=== PATIENT | female | born 1990 | race African-American/Black ===

== ENCOUNTER 2016-08-25 17:47 | Emergency (ER) | payer MEDICAID ==
[2016-08-25 18:51] VITALS: BP 115/76
[2016-08-25] MEDS ORDERED: IBUPROFEN 800 MG TABLET PO ONE (18:51)
--- NOTE | 2016-08-25 18:51 | ER Document Report ---
ED Medical Screen (RME) - General Stated Complaint: TOOTH PAIN Time seen by provider: 18:50 Mode of Arrival: Ambulatory Information source: Patient Notes: 26-year-old female presents to ED for toothache right side upper and lower on and off for the last week. She states that the oral surgeon told her they wouldn't have any openings until next month. I have greeted and performed a rapid initial assessment of this patient. A comprehensive ED assessment and evaluation of the patient, analysis of test results and completion of medical decision making process will be conducted by an additional ED providers. TRAVEL OUTSIDE OF THE [place] IN LAST 30 DAYS: No - Related Data Allergies/Adverse Reactions: hydromorphone [From Dilaudid] Allergy (Verified 06/03/16 03:43) latex Allergy (Verified 06/03/16 03:43) swelling, itching Past Medical History - Social History Chew tobacco use (# tins/day): No Frequency of alcohol use: None Drug Abuse: None - Past Medical History Cardiac Medical History: Reports: Hx Hypertension - not currently Denies: Hx Pulmonary Embolism, Hx Heart Murmur Pulmonary Medical History: Reports: Hx Asthma Denies: Hx Sleep Apnea, Hx Tuberculosis Neurological Medical History: Denies: Hx Cerebrovascular Accident Endocrine Medical History: Denies: Hx Hyperthyroidism, Hx Hypothyroidism Renal/ Medical History: Denies: Hx Kidney Stones, Hx Ovarian Cysts, Hx Peritoneal Dialysis, Hx Pelvic Inflammatory Disease Malignancy Medical History: Denies: Hx Breast Cancer, Hx Cervical Cancer, Hx Ovarian Cancer GI Medical History: Denies: Hx Gastroesophageal Reflux Disease, Hx Hiatal Hernia , Hx Ulcer Musculoskeltal Medical History: Denies Hx Fibromyalgia Psychiatric Medical History: Reports: Hx Bipolar Disorder, Hx Depression Denies: Hx Post Traumatic Stress Disorder, Hx Schizophrenia Traumatic Medical History: Denies: Hx Fractures Infectious Medical History: Denies: Hx HIV Past Surgical History: Reports: Hx Section - Patient states she's had 4C-sections, Hx Kidney (Renal Surgery) - Immunizations Immunizations up to date: Yes Hx Diphtheria, Pertussis, Tetanus Vaccination: Yes - received this
[2016-08-25] MEDS ORDERED: AMOXICILLIN TR/POT CLAVULANATE 500-125 MG TAB PO ONE (20:58)
[2016-08-25] MEDS ORDERED: HYDROCODONE/ACETAMINOPHEN 5-325 MG 6 TAB/DSPK PO PRN (20:59)
--- NOTE | 2016-08-25 21:00 | ER Document Report ---
ED General - General Chief Complaint: Toothache Stated Complaint: TOOTH PAIN Mode of Arrival: Ambulatory Information source: Patient Notes: Patient is a 26 year old female who presents with toothache to upper and lower right jaw that has been present for the past 2 months. She has seen a dentist last month who referred her to an oral surgeon but she wasn't able to get an appointment until September. She states the pain radiates up to her right ear. She has tried OTC pain medication with no relief. Denies any fever, chills, jaw swelling, cheek swelling, difficulty swallowing or breathing. TRAVEL OUTSIDE OF THE [place] IN LAST 30 DAYS: No - Related Data Allergies/Adverse Reactions: hydromorphone [From Dilaudid] Allergy (Verified 08/25/16 18:50) latex Allergy (Verified 08/25/16 18:50) swelling, itching Past Medical History - General Information source: Patient - Social History Smoking Status: Current Every Day Smoker Chew tobacco use (# tins/day): No Frequency of alcohol use: None Drug Abuse: None Family History: Reviewed & Not Pertinent Patient has suicidal ideation: No Patient has homicidal ideation: No - Past Medical History Cardiac Medical History: Reports: Hx Hypertension - not currently Denies: Hx Pulmonary Embolism, Hx Heart Murmur Pulmonary Medical History: Reports: Hx Asthma Denies: Hx Sleep Apnea, Hx Tuberculosis Neurological Medical History: Denies: Hx Cerebrovascular Accident Endocrine Medical History: Denies: Hx Hyperthyroidism, Hx Hypothyroidism Renal/ Medical History: Denies: Hx Kidney Stones, Hx Ovarian Cysts, Hx Peritoneal Dialysis, Hx Pelvic Inflammatory Disease Malignancy Medical History: Denies: Hx Breast Cancer, Hx Cervical Cancer, Hx Ovarian Cancer GI Medical History: Denies: Hx Gastroesophageal Reflux Disease, Hx Hiatal Hernia , Hx Ulcer Musculoskeltal Medical History: Denies Hx Fibromyalgia Psychiatric Medical History: Reports: Hx Bipolar Disorder, Hx Depression Denies: Hx Post Traumatic Stress Disorder, Hx Schizophrenia Traumatic Medical History: Denies: Hx Fractures Infectious Medical History: Denies: Hx HIV Past Surgical History: Reports: Hx Section - Patient states she's had 4C-sections, Hx Kidney (Renal Surgery) - Immunizations Immunizations up to date: Yes Hx Diphtheria, Pertussis, Tetanus Vaccination: Yes - received this Hx Pneumococcal Vaccination: 03/08/13 Review of Systems - Review of Systems Constitutional: See HPI EENT: See HPI Cardiovascular: No symptoms reported Respiratory: No symptoms reported Gastrointestinal: No symptoms reported Genitourinary: No symptoms reported Female Genitourinary: No symptoms reported Musculoskeletal: No symptoms reported Skin: No symptoms reported Hematologic/Lymphatic: No symptoms reported Neurological/Psychological: No symptoms reported Physical Exam - Vital signs Vitals: Temp Pulse Resp BP Pulse Ox 99.2 F 74 18 115/76 99 08/25/16 18:50 08/25/16 18:50 08/25/16 18:50 08/25/16 18:50 08/25/16 18:50 Interpretation: Normal - Notes Notes: PHYSICAL EXAM: CONSTITUTIONAL: Alert and oriented, well-appearing and in no acute distress. HENT: Normocephalic, atraumatic. Oropharynx clear without erythema, tonsilar exudate or malocclusion. Tooth #1 and #2 noted to have decay and detoriation without evidence of gingival swelling or dental abscess. Trachea midline. Uvula midline. Moist mucous membranes. HEART: Regular rate and rhythm without murmurs. LUNGS: CTAB and equal. No wheezes, rales or rhonchi. EXTREMITIES: Normal range of motion, no pitting edema. No cyanosis. Cap Refill < 3 seconds. SKIN: Warm and dry. Normal turgor. No rashes or lesions noted. Course - Re-evaluation Re-evalutation: 08/25/16 20:58 Patient seen and examined. Dental decay noted to tooth #1 and #32, no evidence of gingival swelling or dental abscess. Will give dose of antibiotics here and pain medication. Advised to follow-up with dentist and keep appointment with oral surgeon. At this time, will discharge with return precautions and follow- up recommendations. Verbal discharge instructions given at the bedside and opportunity for questions given. Medication warnings reviewed. Patient is in agreement with this plan and has verbalized understanding of return precautions and the need for primary care follow-up in the next 24-72 hours. - Vital Signs Vital signs: Temp Pulse Resp BP Pulse Ox 99.2 F 74 18 115/76 99 08/25/16 18:50 08/25/16 18:50 08/25/16 18:50 08/25/16 18:50 08/25/16 18:50 Discharge - Discharge Clinical Impression: Dental decay, Toothache Condition: Stable Disposition: HOME, SELF-CARE Additional Instructions: TOOTHACHE: Your pain is due to dental decay. The tooth must be repaired in order for you to feel better. You will, therefore, be referred to a dentist. We do not have dentists on the staff at [facility]. Severe swelling or drainage around a tooth usually means a dental abscess. This also requires evaluation and treatment by the dentist, but antibiotics may be prescribed while awaiting dental treatment. You should be rechecked immediately if you develop major swelling of the face, increasing pain, a lump in the jaw or gums, headache, difficulty swallowing, or fever. ORAL NARCOTIC MEDICATION: You have been given a prescription for pain control. This medication is a narcotic. It's best taken with food, as nausea can result if taken on an empty stomach. Don't operate machinery or drive within six hours of taking this medication. Do not combine this medicine with alcohol, or with any medication which can cause sedation (such as cold tablets or sleeping pills) unless you get permission from the physician. Narcotics tend to cause constipation. If possible, drink plenty of fluids and eat a diet high in fiber and fruits. Please be aware that prescription narcotics also have the potential for abuse. People become addicted to these medications because of the general sense of wellbeing that they induce. This feeling along with a significant reduction in tension, anxiety, and aggression provides a stimulating seductive quality to these drugs. Once your pain is under control, we encourage you to discard your unused narcotics. FOLLOW-UP CARE: You have been referred for follow-up care to the dentists listed below. Call the dentists office for an appointment as you were instructed or within the next two days. If you experience worsening or a significant change in your symptoms, notify the physician immediately or return to the Emergency Department at any time for re-evaluation. [facility] [address] [place], [place] Thursday mornings, by appointment [facility] [address] [place] [address] [facility] [address] [facility] [address] [facility] [address] [email or web address] [address] [place] [address] Thursday- 8:00am to 5:00 pm Will see patients from other [facility]. Charges based on income and family size and accepts Medicare, Medicaid, and Insurances Will pull molars [facility] [address] Hours of Operation 8:00 am - 4:30 pm weekdays The following dental offices accept Medicaid: [facility] [address] Del Valle Dr. Smith Dr. Scherer Jonny Marte, Josi, and Vinny oral surgery Dr. Saavedra ([place]) Dr. Rich ([place]) [facility] Drs. Rider ([place]) Dr. Sultana ([place]) [facility] Dr. Grimaldo ([place]) Drs. Summers and ([place]) Medicaid Care Line Prescriptions: Amox Tr/Potassium Clavulanate [Augmentin 875-125 Tablet] 1 tab PO BID 10 Days Hydrocodone/Acetaminophen [[place] 5-325 mg Tablet] 1 tab PO Q6H PRN #10 tablet PRN Reason: Ibuprofen [Motrin 600 Mg Tablet] 600 mg PO TID #15 tablet
== END 2016-08-25 21:14 | disposition home or self-care (01) ==
LOC: ER 17:47
DX: K02.9 Dental caries, unspecified (principal); K08.9 Disorder of teeth and supporting structures, unspecified; F17.200 Nicotine dependence, unspecified, uncomplicated; Z88.6 Allergy status to analgesic agent; Z91.040 Latex allergy status
CPT/HCPCS: 99282; J3490

== ENCOUNTER 2016-08-27 02:20 | Emergency (ER) | payer MEDICAID ==
[2016-08-27] MEDS ORDERED: NORMAL SALINE 1000 ML 1,000 ML IV ONE (02:26)
--- NOTE | 2016-08-27 02:30 | ER Document Report ---
ED General - General Stated Complaint: POSSIBLE OVERDOSE Notes: Patient is a 26-year-old female presents for complaints of a accidental overdose of Kiana. Patient was seen yesterday and diagnosed a tooth infection. She is placed on amoxicillin Kiana. She got the Kiana filled today. Tonight she took a tablet. She would've 4 hours if still having pain. She then took 2 tablets. She'll start Motrin amoxicillin. After taking the second dosage of Kiana she felt very sleepy and called 911. 1 para mix arrived her pupils were pinpoint and she had shallow respirations. They gave her 2 mg of intranasal Narcan which immediately awoke her in reverse her symptoms. She did vomit once. Upon arrival to the ER she started become sleepy again and therefore they gave her another 0.4 mg of Narcan IV which again woke her up. She has no other complaints at this time. She denies any other drugs. TRAVEL OUTSIDE OF THE [place] IN LAST 30 DAYS: No - Related Data Allergies/Adverse Reactions: hydromorphone [From Dilaudid] Allergy (Verified 08/25/16 18:50) latex Allergy (Verified 08/25/16 18:50) swelling, itching Past Medical History - Social History Smoking Status: Unknown if Ever Smoked Frequency of alcohol use: None Drug Abuse: None Family History: Reviewed & Not Pertinent Patient has suicidal ideation: No Patient has homicidal ideation: No - Past Medical History Cardiac Medical History: Reports: Hx Hypertension - not currently Denies: Hx Pulmonary Embolism, Hx Heart Murmur Pulmonary Medical History: Reports: Hx Asthma Denies: Hx Sleep Apnea, Hx Tuberculosis Neurological Medical History: Denies: Hx Cerebrovascular Accident Endocrine Medical History: Denies: Hx Hyperthyroidism, Hx Hypothyroidism Renal/ Medical History: Denies: Hx Kidney Stones, Hx Ovarian Cysts, Hx Peritoneal Dialysis, Hx Pelvic Inflammatory Disease Malignancy Medical History: Denies: Hx Breast Cancer, Hx Cervical Cancer, Hx Ovarian Cancer GI Medical History: Denies: Hx Gastroesophageal Reflux Disease, Hx Hiatal Hernia , Hx Ulcer Musculoskeltal Medical History: Denies Hx Fibromyalgia Psychiatric Medical History: Reports: Hx Bipolar Disorder, Hx Depression Denies: Hx Post Traumatic Stress Disorder, Hx Schizophrenia Traumatic Medical History: Denies: Hx Fractures Infectious Medical History: Denies: Hx HIV Past Surgical History: Reports: Hx Section - Patient states she's had 4C-sections, Hx Kidney (Renal Surgery) - Immunizations Immunizations up to date: Yes Hx Diphtheria, Pertussis, Tetanus Vaccination: Yes - received this Hx Pneumococcal Vaccination: 03/08/13 Review of Systems - Review of Systems Notes: My Normal Review Basic REVIEW OF SYSTEMS: CONSTITUTIONAL : Denies fever, chills, or sweats. Denies recent illness. EENT: Toothache RESPIRATORY: Denies cough, cold, or chest congestion. Denies shortness of breath, difficulty breathing, or wheezing. GASTROINTESTINAL: Denies abdominal pain. Denies nausea, vomiting, or diarrhea. Denies constipation. Last BM: GENITOURINARY: Denies difficulty urinating, painful urination, burning, frequency, or blood in urine. MUSCULOSKELETAL: Denies neck or back pain or joint pain or swelling. SKIN: Denies rash or skin lesions. NEUROLOGICAL: Denies altered mental status or loss of consciousness. Denies headache. Denies weakness or paralysis or loss of use of either side. Denies problems with gait or speech. Denies sensory or motor loss. ALL OTHER SYSTEMS REVIEWED AND NEGATIVE. Physical Exam - Vital signs Vitals: Pulse Resp Pulse Ox 85 13 100 08/27/16 02:27 08/27/16 02:27 08/27/16 02:27 - Notes Notes: General Appearance: Well nourished, somnolent but alert, cooperative, no acute distress, no obvious discomfort. Vitals: reviewed, See vital signs table. Head: no swelling or tenderness to the head Eyes: PERRL, EOMI, Conjuctiva clear Mouth: Fractured right lower molar. No gingival abscess. Throat: No tonsillar inflammation, No airway obstruction, No lymphadenopathy Neck: Supple, no neck tenderness, No thyromegaly Lungs: No wheezing, No rales, No rhonci, No accessory muscle use, good air exchange bilaterally. Heart: Normal rate, Regular rythm, No murmur, no rub Abdomen: Normal BS, soft, No rigidity, No abdominal tenderness, No guarding, no rebound, no abdominal masses, no organomegaly Extremities: strength 5/5 in all extremities, good pulses in all extremities, no swelling or tenderness in the extremities, no edema. Skin: warm, dry, appropriate color, no rash Neuro: speech clear, oriented x 3, normal affect, responds appropriately to questions. Course - Vital Signs Vital signs: Temp Pulse Resp BP Pulse Ox 98.2 F 85 15 125/80 100 08/27/16 02:33 08/27/16 02:27 08/27/16 03:00 08/27/16 02:30 08/27/16 03:00 - Laboratory Laboratory results interpreted by me: 08/27/16 02:30 Salicylates < 1.0 L Acetaminophen < 10 L - Transfer of Care Notes: 08/27/16 03:35 I did talk to the patient length. I did strongly encourage her to stay in the ER so that we can observe her until the Kiana would be out of her system. Patient refuses to stay. She says that her mother is watching her kids and that 's she has to get home to help watch her kids. I did inform her that she could become sleepy again and potentially stop breathing which could kill her. Patient understands this but says that she cannot stay and requests to leave against bio medical technician. I strongly encouraged to return to ER anytime as we are happy to care for. A shunt is awake and alert and shows medical decision capability. I cannot hold her against her will. Patient will be discharged as she requests. Dictation of this chart was performed using voice recognition software; therefore, there may be some unintended grammatical errors. Discharge - Discharge Clinical Impression: Opiate overdose Qualifiers: Encounter type: initial encounter Injury intent: accidental or unintentional Qualified Code(s): T40.601A - Poisoning by unspecified narcotics, accidental ( unintentional), initial encounter Condition: Stable Disposition: AGAINST MEDICAL ADVICE Additional Instructions: As discussed with you, my concern is that you may develop severe sleepiness and difficulty breathing which could lead to if you leave the ER before the appropriate observation period. We would like to observe you until the medication you took earlier is completely out of your system. I understand that you are unable to do this and request to be discharged against bio medical technician. We will discharge you as you request, but we strongly encourage you to return to the ER anytime so we can reevaluate and take care of you. You must call the ambulance immediately if you start to feel sleepy or short of breath. Please do not take any opiate pain medications in the future including Kiana. Forms: Return to Work
[2016-08-27 03:04] LABS: ALCOHOL < 10 mg/dL (NONE DETECTED)
[2016-08-27 03:23] VITALS: BP 125/80
== END 2016-08-27 03:00 | disposition left against medical advice (07) ==
LOC: ER 02:20
DX: T40.2X1A Poisoning by other opioids, accidental (unintentional), initial encounter (principal); J70.4 Drug-induced interstitial lung disorders, unspecified; R53.83 Other fatigue; R11.10 Vomiting, unspecified; Y92.009 Unspecified place in unspecified non-institutional (private) residence as the place of occurrence of the external cause; K04.7 Periapical abscess without sinus; J45.909 Unspecified asthma, uncomplicated; Z88.5 Allergy status to narcotic agent; Z91.040 Latex allergy status; Z53.29 Procedure and treatment not carried out because of patient's decision for other reasons
CPT/HCPCS: 36415; 80307; 82962; 99284

== ENCOUNTER 2016-10-03 15:49 | Emergency (ER) | payer MEDICAID | END 2016-10-03 16:40 | disposition left against medical advice (07) | LOC: ER 15:49 | DX: Z53.21 Procedure and treatment not carried out due to patient leaving prior to being seen by health care provider (principal) ==

== ENCOUNTER 2016-11-07 02:19 | Emergency (ER) | payer MEDICAID ==
--- NOTE | 2016-11-07 04:38 | RADIOLOGY REPORT (SQ) ---
EXAM DESCRIPTION: FINGER RIGHT COMPLETED DATE/TIME: 11/07/2016 4:25 am REASON FOR STUDY: thumb, swelling, pain . Cut thumb on can on 11/01/2016, laceration on the dorsal s tonya of the thumb. COMPARISON: None. NUMBER OF VIEWS: Three views. TECHNIQUE: AP view of the right hand and lateral, and oblique images acquired of the right thumb. LIMITATIONS: None. FINDINGS: MINERALIZATION: Normal. BONES: No acute fracture or dislocation. SOFT TISSUES: No soft tissue swelling. No radiopaque foreign body. IMPRESSION: NO RADIOGRAPHIC EVIDENCE OF ACUTE INJURY. COMMENT: SITE OF TRAUMA/COMPLAINT MARKED/STAMP COMPLETED: YES. TECHNICAL DOCUMENTATION: JOB ID: [id number] [place]-[id number] 2010 [employer].- All Rights Reserved
[2016-11-07] MEDS ORDERED: CEPHALEXIN 500 MG CAPSULE PO ONE (05:10)
[2016-11-07] MEDS ORDERED: IBUPROFEN 800 MG TABLET PO ONE (05:10)
--- NOTE | 2016-11-07 05:10 | ER Document Report ---
HPI - HPI Patient complains to provider of: thumb pain Pain Level: 2 Context: Patient is a 26-year-old female presents emergency department complaining of finger pain, swelling. Patient states that this past Thursday she had cut her finger on a can of tuna. She states she has been keeping it clean with bacitracin and Band-Aids. She states that since Thursday and has been swelling around the joint she has had pain with movement. Not been icing it or taking any Motrin or Tylenol fevers or chills - REPRODUCTIVE LMP: 10/27/16 Reproductive: DENIES: : - DERM Skin Color: Normal, [place] Past Medical History - Social History Smoking Status: Current Every Day Smoker Chew tobacco use (# tins/day): No Frequency of alcohol use: None Drug Abuse: None Family History: Reviewed & Not Pertinent Patient has suicidal ideation: No Patient has homicidal ideation: No - Past Medical History Cardiac Medical History: Reports: Hx Hypertension - not currently Denies: Hx Pulmonary Embolism, Hx Heart Murmur Pulmonary Medical History: Reports: Hx Asthma Denies: Hx Sleep Apnea, Hx Tuberculosis Neurological Medical History: Denies: Hx Cerebrovascular Accident Endocrine Medical History: Denies: Hx Hyperthyroidism, Hx Hypothyroidism Renal/ Medical History: Denies: Hx Kidney Stones, Hx Ovarian Cysts, Hx Peritoneal Dialysis, Hx Pelvic Inflammatory Disease Malignancy Medical History: Denies: Hx Breast Cancer, Hx Cervical Cancer, Hx Ovarian Cancer GI Medical History: Denies: Hx Gastroesophageal Reflux Disease, Hx Hiatal Hernia , Hx Ulcer Musculoskeltal Medical History: Denies Hx Fibromyalgia Psychiatric Medical History: Reports: Hx Bipolar Disorder, Hx Depression Denies: Hx Post Traumatic Stress Disorder, Hx Schizophrenia Traumatic Medical History: Denies: Hx Fractures Infectious Medical History: Denies: Hx HIV Past Surgical History: Reports: Hx Section - x4, Hx Kidney (Renal Surgery) - Immunizations Immunizations up to date: Yes Hx Diphtheria, Pertussis, Tetanus Vaccination: Yes Hx Pneumococcal Vaccination: 03/08/13 Vertical Provider Document - CONSTITUTIONAL Agree With Documented VS: Yes Exam Limitations: No Limitations General Appearance: WD/WN, No Apparent Distress - INFECTION CONTROL TRAVEL OUTSIDE OF THE [place] IN LAST 30 DAYS: No - RESPIRATORY O2 Sat by Pulse Oximetry: 100 - CARDIOVASCULAR Pulses: Normal: Radial Notes: Capillary refill less than 2 seconds in all upper extremity digits appear - MUSCULOSKELETAL/EXTREMETIES Musculoskeletal/Extremeties: Tender, Edema. negative: FRANC JAVIER Notes: warm to touch - NEURO Level of Consciousness: Awake, Alert, Appropriate Motor/Sensory: No Motor Deficit, No Sensory Deficit - DERM Integumentary: Warm, Dry, No Rash, Laceration - 1cm laceration on the dorsal aspect of the right thumb with mild clear drainage Course - Re-evaluation Re-evalutation: 11/07/16 06:53 Patient's x-ray negative for any gas production, injury, tissue swelling. CRP and sed rate are normal. No concern for septic joint. Will discharge home on antibiotic and instruction to follow-up with primary care if no improvement on Thursday. Patient expresses understanding - Vital Signs Vital signs: Temp Pulse Resp BP Pulse Ox 98.5 F 96 16 111/69 100 11/07/16 02:22 11/07/16 02:22 11/07/16 02:22 11/07/16 02:22 11/07/16 02:22 - Diagnostic Test Radiology reviewed: Image reviewed, Reports reviewed Discharge - Discharge Clinical Impression: Finger pain, Cellulitis Condition: Good Disposition: HOME, SELF-CARE Instructions: Cellulitis ([facility]), Ice & Elevation ([facility]), Anti-Inflammatory Medication ([facility]) Prescriptions: Cephalexin Monohydrate [Keflex 500 mg Capsule] 500 mg PO QID #20 capsule Ibuprofen [Motrin 800 mg Tablet] 800 mg PO Q8H PRN #30 tab PRN Reason:
[2016-11-07 05:37] VITALS: BP 102/42
== END 2016-11-07 05:35 | disposition home or self-care (01) ==
LOC: ER 02:19
DX: L03.011 Cellulitis of right finger (principal); M79.644 Pain in right finger(s); F17.200 Nicotine dependence, unspecified, uncomplicated
CPT/HCPCS: 99283; 36415; 85652; 86140; 73140; J3490

== ENCOUNTER 2017-01-07 00:43 | Emergency (ER) | payer MEDICAID ==
[2017-01-07] MEDS ORDERED: ONDANSETRON 4 MG TAB.RAPDIS PO ONE (01:34)
[2017-01-07] MEDS ORDERED: ACETAMINOPHEN 325 MG TABLET PO ONE (01:34)
[2017-01-07 02:02] LABS: ABSOLUTE EOSINOPHILS # (AUTO) 0.2 10^3/uL (0.0-0.6); ABSOLUTE LYMPHOCYTES (AUTO) 2.6 10^3/uL (0.5-4.7); ABSOLUTE MONOCYTES (AUTO) 0.3 10^3/uL (0.1-1.4); ABSOLUTE NEUT (AUTO) 2.5 10^3/uL (1.7-8.2); BASOPHILS % (AUTO) 0.5 % (0-2); EOSINOPHILS % (AUTO) 2.7 % (0-6); HEMATOCRIT 36.4 % (36.0-47.0); HEMOGLOBIN 12.2 g/dL (12.0-15.5); HGB HCT DIFFERENCE 0.2; LYMPHOCYTES % (AUTO) 47.2 % (13-45); MEAN CORPUSCULAR HGB CONC 33.6 g/dL (32.0-36.0); MEAN CORPUSCULAR VOLUME 89 fl (80-97); MONOCYTES % (AUTO) 5.5 % (3-13); RED BLOOD COUNT 4.07 10^6/uL (3.72-5.28); RED CELL DISTRIBUTION WIDTH 13.8 % (11.5-14.0); SEGMENTED NEUTROPHILS % (AUTO) 44.1 % (42-78); WHITE BLOOD COUNT 5.6 10^3/uL (4.0-10.5)
[2017-01-07 02:21] LABS: ALANINE AMINOTRANSFERASE 27 U/L (9-52); ALBUMIN 3.5 g/dL (3.5-5.0); ALKALINE PHOSPHATASE 51 U/L (38-126); ANION GAP 7 (5-19); ASPARTATE AMINO TRANSFERASE 18 U/L (14-36); BILIRUBIN,DIRECT 0.3 mg/dL (0.0-0.4); BILIRUBIN,TOTAL 0.4 mg/dL (0.2-1.3); BLOOD UREA NITROGEN 8 mg/dL (7-20); CALCIUM 9.2 mg/dL (8.4-10.2); CARBON DIOXIDE 29 mmol/L (22-30); CHLORIDE 107 mmol/L (98-107); GLUCOSE 90 mg/dL (75-110); SODIUM 142.9 mmol/L (137-145)
[2017-01-07 02:37] LABS: APPEARANCE,URINE CLEAR; BILIRUBIN,URINE NEGATIVE (NEGATIVE); GLUCOSE, URINE NEGATIVE (NEGATIVE); KETONES,URINE NEGATIVE (NEGATIVE); LEUKOCYTE ESTERASE,URINE NEGATIVE (NEGATIVE); NITRITE,URINE NEGATIVE (NEGATIVE); PROTEIN,URINE NEGATIVE (NEGATIVE); URINE SPECIFIC GRAVITY 1.018; UROBILINOGEN,URINE NEGATIVE mg/dL (<2.0)
--- NOTE | 2017-01-07 04:45 | ER Document Report ---
ED GI/ - General Chief Complaint: Abdominal pain and vaginal spotting Stated Complaint: VAGINAL CRAMPING/BLEEDING Time Seen by Provider: 01/07/17 01:24 Notes: Patient is a 26-year-old female who is presents with abdominal cramping that started earlier this evening. Patient states that she thought she noticed some spotting in her underwear but is gone away. Patient admits to intermittent pelvic cramps without any associated nausea, vomiting, abdominal pain, diarrhea, constipation, hematuria, pyuria, urinary frequency, vaginal discharge, vaginal pain. Patient is sexually active with one partner and does not use protection. Patient states she had a tubal ligation a year ago. Otherwise she is a healthy female. No fevers or chills. TRAVEL OUTSIDE OF THE [place] IN LAST 30 DAYS: No - Related Data Allergies/Adverse Reactions: hydromorphone [From Dilaudid] Allergy (Verified 11/07/16 04:49) latex Allergy (Verified 11/07/16 04:49) swelling, itching Past Medical History - Social History Smoking Status: Current Every Day Smoker Family History: Reviewed & Not Pertinent - Past Medical History Cardiac Medical History: Reports: Hx Hypertension - not currently Denies: Hx Pulmonary Embolism, Hx Heart Murmur Pulmonary Medical History: Reports: Hx Asthma Denies: Hx Sleep Apnea, Hx Tuberculosis Neurological Medical History: Denies: Hx Cerebrovascular Accident Endocrine Medical History: Denies: Hx Hyperthyroidism, Hx Hypothyroidism Renal/ Medical History: Denies: Hx Kidney Stones, Hx Ovarian Cysts, Hx Peritoneal Dialysis, Hx Pelvic Inflammatory Disease Malignancy Medical History: Denies: Hx Breast Cancer, Hx Cervical Cancer, Hx Ovarian Cancer GI Medical History: Denies: Hx Gastroesophageal Reflux Disease, Hx Hiatal Hernia , Hx Ulcer Musculoskeltal Medical History: Denies Hx Fibromyalgia Psychiatric Medical History: Reports: Hx Bipolar Disorder, Hx Depression Denies: Hx Post Traumatic Stress Disorder, Hx Schizophrenia Traumatic Medical History: Denies: Hx Fractures Infectious Medical History: Denies: Hx HIV Past Surgical History: Reports: Hx Section - x4, Hx Kidney (Renal Surgery) - Immunizations Immunizations up to date: Yes Hx Diphtheria, Pertussis, Tetanus Vaccination: Yes Hx Pneumococcal Vaccination: 03/08/13 Review of Systems - Review of Systems Constitutional: No symptoms reported Female Genitourinary: See HPI -: Yes All other systems reviewed and negative Physical Exam - Vital signs Vitals: Temp Pulse Resp BP Pulse Ox 98.6 F 80 16 118/101 H 100 01/07/17 01:04 01/07/17 01:04 01/07/17 01:04 01/07/17 01:04 01/07/17 01:04 - Notes Notes: PHYSICAL EXAM GENERAL: Alert, interacts well. LUNGS: Clear to auscultation bilaterally, no wheezes, rales, or rhonchi. No respiratory distress. HEART: Regular rate and rhythm. No murmurs, gallops, or rubs. ABDOMEN: Soft, nondistended, nontender. No guarding, rebound, or rigidity.. Bowel sounds present in all 4 quadrants. FEMALE : Normal external exam. No evidence of lesions, lacerations, bruising or vesicles. Speculum exam normal cervix closed. No evidence of vaginal discharge with odor. No evidence of lesions. No vaginal bleeding. Bimanual exam normal no cervical motion tenderness. No adnexal mass or adnexal tenderness. EXTREMITIES: Moves all 4 extremities spontaneously. No edema, radial and dorsalis pedis pulses 2/4 bilaterally. No cyanosis. NEUROLOGICAL: Alert and oriented x4. Normal speech. PSYCH: Normal affect, normal mood. SKIN: Warm, dry, normal turgor. No rashes or lesions noted. Course - Re-evaluation Re-evalutation: 01/07/17 05:28 patient is a 26-year-old female hemodynamically stable, no acute distress and afebrile. Repeat abdominal exams been benign in the emergency department. CBC without any evidence of leukocytosis, anemia. CMP without any evidence of electrolyte abnormalities, abnormalities in renal, liver function. Pelvic exam benign. Urinalysis without any evidence of , urinary tract infection Or hematuria. At this time patient is resting comfortably and tolerating p.o. without any difficulty. Will discharge home. After performing a Medical Screening Examination, I estimate there is LOW risk for ACUTE APPENDICITIS, BOWEL OBSTRUCTION, ACUTE CHOLECYSTITIS, PERFORATED DIVERTICULITIS, INCARCERATED HERNIA, PANCREATITIS, PELVIC INFLAMMATORY DISEASE, PERFORATED ULCER, ECTOPIC , or TUBO-OVARIAN ABSCESS, thus I consider the discharge disposition reasonable. Also, there is no evidence or peritonitis , sepsis, or toxicity. I have reevaluated this patient multiple times and no significant life threatening changes are noted. The patient and I have discussed the diagnosis and risks, and we agree with discharging home with close follow-up with the understanding that symptoms and presentations can change. We also discussed returning to the Emergency Department immediately if new or worsening symptoms occur. We have discussed the symptoms which are most concerning (e.g., bloody stool, fever, changing or worsening pain, vomiting) that necessitate immediate return. - Vital Signs Vital signs: Temp Pulse Resp BP Pulse Ox 98.6 F 88 18 110/60 98 01/07/17 01:04 01/07/17 04:58 01/07/17 04:58 01/07/17 04:58 01/07/17 04:58 - Laboratory Result Diagrams: 01/07/17 01:51 01/07/17 01:51 Laboratory results interpreted by me: 01/07/17 01/07/17 01:51 01:51 Lymphocytes % 47.2 H Total Protein 6.0 L Discharge - Discharge Clinical Impression: Pelvic pain Condition: Good Disposition: HOME, SELF-CARE Additional Instructions: ABDOMINAL PAIN: There are many causes of abdominal pain. Pain can mean a serious problem requiring surgery (such as appendicitis). It can also be an innocent problem that goes away on its own (such as a viral infection). Often, time must pass to determine the cause of pain. The physician does not feel that hospitalization is necessary, at present. Things may change within the next 24 hours. Call the doctor or come back for re- examination if any problems occur, such as: (1) Pain that becomes more severe, steady, or becomes concentrated in one specific area. Also, pain that is more severe with movement or coughing. (2) Vomiting that persists or becomes more frequent. (3) Blood in the vomitus, urine, or bowel movements. Blood in the stool may have a tarry or black appearance. (4) Shaking chills or fever greater than 100 degrees F. (5) The abdomen becomes more distended or swollen. (6) Bowel movements cease. (7) Failure to improve as expected. NORMAL EXAM AND WORKUP: At this time, your examination and workup show no significant abnormality. No significant abnormal physical findings are noted. All laboratory, EKG, and imaging (x-ray, CT scans, ultrasound) studies that were ordered show no significant abnormality. Although your examination and all studies that were ordered showed no significant abnormal finding, there are no examinations and no studies that are 100% accurate. There is always the possibility that some abnormality could exist and not be detected with physical examination or within the limits and capabilities of laboratory and other studies. You should return or follow up as you were instructed on your visit today for further evaluation if your symptoms do not resolve. FOLLOW-UP CARE: If you have been referred to a physician for follow-up care, call the physician s office for an appointment as you were instructed or within the next two days. If you experience worsening or a significant change in your symptoms, notify the physician immediately or return to the Emergency Department at any time for re-evaluation.
[2017-01-07] MEDS ORDERED: IBUPROFEN 800 MG TABLET PO ONE (04:46)
[2017-01-07 04:58] VITALS: BP 110/60
[2017-01-07 05:04] LABS: CHLAM PCR NOT DETECTED (NOT DETECT)
== END 2017-01-07 04:58 | disposition home or self-care (01) ==
LOC: ER 00:43
DX: R10.2 Pelvic and perineal pain (principal); F17.200 Nicotine dependence, unspecified, uncomplicated; J45.909 Unspecified asthma, uncomplicated; Z98.51 Tubal ligation status; Z88.5 Allergy status to narcotic agent; Z91.040 Latex allergy status
CPT/HCPCS: 99284; 36415; 87210; 84702; 85025; 80053; 81001; 87491; 87591; J3490 ×2; S0119

== ENCOUNTER 2017-07-26 21:46 | Emergency (ER) | payer MEDICAID ==
[2017-07-26] MEDS ORDERED: ACETAMINOPHEN SUSP 160 MG/5 ML ORAL SYRING PO ONE ×2 (22:03→22:05)
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
[2017-07-27] MEDS ORDERED: HYDROCODONE/ACETAMINOPHEN 5-325 MG (6 TAB/ER DISP) PO PRN (01:14)
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
[2017-07-27 01:41] VITALS: BP 121/57
== END 2017-07-27 01:40 | disposition home or self-care (01) ==
LOC: ER 21:46
DX: S06.0X9A Concussion with loss of consciousness of unspecified duration, initial encounter (principal); Y04.0XXA Assault by unarmed brawl or fight, initial encounter; S00.83XA Contusion of other part of head, initial encounter; R68.84 Jaw pain; R51 Headache; Z88.5 Allergy status to narcotic agent; Z91.040 Latex allergy status; I10 Essential (primary) hypertension; J45.909 Unspecified asthma, uncomplicated
CPT/HCPCS: 70450; 70486; 72125; 99283

== ENCOUNTER 2017-09-29 23:10 | Emergency (ER) | payer SELFPAY ==
[2017-09-30] MEDS ORDERED: ONDANSETRON 4 MG TAB.RAPDIS PO ONE (00:44)
[2017-09-30] MEDS ORDERED: DEXAMETHASONE SOD PHOS INJ 10 MG/1 ML VIAL IM ONE (00:44)
[2017-09-30] MEDS ORDERED: KETOROLAC TROMETHAMINE INJ/PF 30 MG/1 ML SDV IM ONE (00:44)
--- NOTE | 2017-09-30 00:46 | ER Document Report ---
HPI - HPI Pain Level: 5 Notes: Patient is a 27-year-old female who presents to the ED complaining of nasal congestion/discharge, dry nonproductive cough, fever, sore throat, body ache, intermittent nausea w/o vomiting 4-5 days. Patient states that she is still eating and drinking without difficulties, but does have a decreased p.o. intake. She is still urinating normally having normal bowel movements. Patient has been using some [id number] meds for symptoms. She denies any significant past medical history including cardiopulmonary history and immunocompromised conditions aside from a mild asthma. Patient denies any IV drug use. Denies any headache, neck pain, sore throat, chest pain, palpitations , syncope, shortness of breath, wheeze, dyspnea, abdominal pain, vomiting/ diarrhea, urinary retention, dysuria, hematuria, or rash. Pt denies and does not want to be tested. - ROS Systems Reviewed and Negative: Yes All other systems reviewed and negative - CONSTITUTIONAL Constitutional: REPORTS: Fever, Chills - EENT EENT: REPORTS: Sore Throat, Ear Pain. DENIES: Eye problems - NEURO Neurology: REPORTS: Headache, Weakness. DENIES: Vision blurred, Dizzinesss / Vertigo - CARDIOVASCULAR Cardiovascular: REPORTS: Chest pain - RESPIRATORY Respiratory: REPORTS: Trouble Breathing, Coughing - GASTROINTESTINAL Gastrointestinal: REPORTS: Abdominal Pain. DENIES: Black / Bloody Stools - URINARY Urinary: DENIES: Dysuria, Urgency, Frequency - REPRODUCTIVE Reproductive: DENIES: : - MUSCULOSKELETAL Musculoskeletal: DENIES: Extremity pain Past Medical History - Social History Smoking Status: Current Every Day Smoker Family History: Reviewed & Not Pertinent Patient has suicidal ideation: No Patient has homicidal ideation: No - Past Medical History Cardiac Medical History: Reports: Hx Hypertension - not currently Denies: Hx Pulmonary Embolism, Hx Heart Murmur Pulmonary Medical History: Reports: Hx Asthma Denies: Hx Sleep Apnea, Hx Tuberculosis Neurological Medical History: Denies: Hx Cerebrovascular Accident Endocrine Medical History: Denies: Hx Hyperthyroidism, Hx Hypothyroidism Renal/ Medical History: Denies: Hx Kidney Stones, Hx Ovarian Cysts, Hx Peritoneal Dialysis, Hx Pelvic Inflammatory Disease Malignancy Medical History: Denies: Hx Breast Cancer, Hx Cervical Cancer, Hx Ovarian Cancer GI Medical History: Denies: Hx Gastroesophageal Reflux Disease, Hx Hiatal Hernia , Hx Ulcer Musculoskeltal Medical History: Denies Hx Fibromyalgia Psychiatric Medical History: Reports: Hx Bipolar Disorder, Hx Depression Denies: Hx Post Traumatic Stress Disorder, Hx Schizophrenia Traumatic Medical History: Denies: Hx Fractures Infectious Medical History: Denies: Hx HIV Past Surgical History: Reports: Hx Section - x4, Hx Kidney (Renal Surgery) - Immunizations Immunizations up to date: Yes Hx Diphtheria, Pertussis, Tetanus Vaccination: Yes Hx Pneumococcal Vaccination: 03/08/13 Vertical Provider Document - CONSTITUTIONAL Agree With Documented VS: Yes Notes: PHYSICAL EXAMINATION: GENERAL: Well-appearing, well-nourished and in no acute distress. A&Ox4. Answers questions appropriately. Moves comfortably w/o notable distress HEAD: Atraumatic, normocephalic. EYES: Pupils equal round and reactive to light, extraocular movements intact, sclera anicteric, conjunctiva are normal. ENT: EAC clear b/l. TM's intact b/l without erythema, fluid, or perforation. Nares patent and with clear discharge. oropharynx mild erythema without exudates. 2+ tonsilar hypertrophy with erythema and scant exudate. No palatine shift. Uvula midline. No tongue protrusion. No drooling, hoarseness , or airway compromise. Moist mucous membranes. No sinus tenderness. NECK: Normal range of motion, supple without lymphadenopathy. No rigidity/ meningismus. LUNGS: Breath sounds clear to auscultation bilaterally and equal. No wheezes rales or rhonchi. No retractions HEART: Regular rate and rhythm without murmurs, rubs, gallops. ABDOMEN: Soft, nontender, nondistended abdomen. No guarding, no rebound. No masses appreciated. Normal bowel sounds present. No CVA tenderness bilaterally. No hepatosplenomegaly. NEUROLOGICAL: Normal speech, normal gait. Normal sensory, motor exams PSYCH: Normal mood, normal affect. SKIN: Warm, Dry, normal turgor, no rashes or lesions noted. - INFECTION CONTROL TRAVEL OUTSIDE OF THE [place] IN LAST 30 DAYS: No Course - Re-evaluation Re-evalutation: 09/30/17 01:27 Patient is an afebrile, well-hydrated, 22-year-old female who presents to the ED with acute URI/pharyngitis, suspect influenza vs other viral illness. Vitals are acceptable. PE is otherwise unremarkable. Rapid strep neg with a cx pending. No other labs or imaging warranted at this time based on H&P. Patient has no significant cardiopulmonary or immunocompromised medical conditions aside from mild asthma that is currently not exacerbated. Patient's lungs are clear to auscultation bilaterally without tachycardia, hypoxia, or tachypnea. Patient is tolerating p.o. without any difficulties. Pt was given toradol, decadron, and zofran. Pt outside of treatment window for tamiflu and does not have any significant comorbidities. Low suspicion for any meningitis, sepsis, peritonsillar/pharyngeal abscess, respiratory compromise, severe dehydration, or other emergent systemic condition at this time. Patient is aware this condition can change from initial presentation and she needs to monitor symptoms closely. Conservative measures otherwise for symptoms. Recheck with your PCM in 3-5 days. Return to the ED with any worsening/ concerning symptoms otherwise as reviewed in discharge. Patient is in agreement. - Vital Signs Vital signs: Temp Pulse Resp BP Pulse Ox 99.0 F 106 H 16 110/65 99 09/29/17 23:44 09/29/17 23:44 09/29/17 23:44 09/29/17 23:44 09/29/17 23:44 Discharge - Discharge Clinical Impression: Acute URI Acute pharyngitis Qualifiers: Pharyngitis/tonsillitis etiology: unspecified etiology Qualified Code(s): J02.9 - Acute pharyngitis, unspecified Condition: Stable Disposition: HOME, SELF-CARE Instructions: Upper Respiratory Illness ([facility]), Sore Throat ([facility]), Influenza ( [facility]) Additional Instructions: Maintain adequate fluid intake Take meds as directed tylenol/ibuprofen as needed over the counter cold medication as needed for symptoms Humidified air may help Wash your hands regularly Wear a mask when coughing F/u: with your PCM in 3-5 days for a recheck Return to the ED with any fever, worsening pain, chest pain, palpitations, syncope, worsening DELATORRE, neck pain/stiffness, shortness of breath, wheezing, drooling, trouble swallowing/breathing, abdominal pain, n/v/d, rash, or worsening/concerning symptoms otherwise. Prescriptions: Ondansetron [Zofran Odt 4 mg Tablet] 1 - 2 tab PO Q4H PRN #15 tab.rapdis PRN Reason: For Nausea/Vomiting Referrals: [facility] [Provider Group] - Follow up as needed [facility] [Provider Group] - Follow up as needed
[2017-09-30 02:11] VITALS: BP 102/66
== END 2017-09-30 02:11 | disposition home or self-care (01) ==
LOC: ER 23:10
DX: J06.9 Acute upper respiratory infection, unspecified (principal); R09.81 Nasal congestion; R50.9 Fever, unspecified; F17.200 Nicotine dependence, unspecified, uncomplicated
CPT/HCPCS: 99283; 96372; 87070; 87880; S0119; J1885; J1100

== ENCOUNTER 2018-08-16 09:26 | Emergency (ER) | payer OTHER ==
[2018-08-16] MEDS ORDERED: KETOROLAC TROMETHAMINE 60 MG/2 ML SDV IM ONE (10:27)
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
[2018-08-16 11:43] VITALS: BP 103/53
== END 2018-08-16 11:43 | disposition home or self-care (01) ==
LOC: ER 09:26
DX: S70.01XA Contusion of right hip, initial encounter (principal); M25.552 Pain in left hip; M54.5 Low back pain; V03.00XA Pedestrian on foot injured in collision with car, pick-up truck or van in nontraffic accident, initial encounter; Y93.C2 Activity, hand held interactive electronic device; Y92.481 Parking lot as the place of occurrence of the external cause; F17.200 Nicotine dependence, unspecified, uncomplicated; J45.909 Unspecified asthma, uncomplicated
CPT/HCPCS: 99283; 96372; 73502; 72110; J1885

== ENCOUNTER 2018-11-14 15:30 | Emergency (ER) | payer SELFPAY ==
[2018-11-14 15:41] VITALS: BP 115/66
[2018-11-14] MEDS ORDERED: NORMAL SALINE 1000 ML 1,000 ML IV PRN (16:08)
[2018-11-14] MEDS ORDERED: ONDANSETRON HCL INJ/PF 4 MG/2 ML SDV IV ONE (16:08)
--- NOTE | 2018-11-14 16:08 | ER Document Report ---
ED Medical Screen (RME) - General Chief Complaint: Nausea/Vomiting/Diarrhea Stated Complaint: NAUSEA/VOMITNG,DIARRHEA Time Seen by Provider: 11/14/18 16:04 TRAVEL OUTSIDE OF THE [place] IN LAST 30 DAYS: No - HPI Notes: 11/14/18 16:06 Patient is a 28-year-old female with a history of asthma who presents complaining of nausea, vomiting, watery diarrhea, generalized abd cramping, left-sided chest pain that is described as sharp over the past 2 to 3 days. She is a decreased p.o. intake. She is urinating normally. No other vaginal discharge, odor, or bleeding. No surgical history to her abdomen aside from C- sections. Denies DELATORRE, fever, neck pain, URI, SOB, dysuria, back pain, or rash. I have treated and performed a rapid initial assessment of this patient. A comprehensive ED assessment and evaluation of the patient, analysis of test results and completion of medical decision making process will be conducted by additional ED providers. PHYSICAL EXAMINATION: GENERAL: Well-appearing, well-nourished and in no acute distress. A&Ox4. Answers questions appropriately. LUNGS: Breath sounds clear to auscultation bilaterally and equal. No wheezes rales or rhonchi. HEART: Regular rate and rhythm without murmurs, rubs, gallops. ABDOMEN: Soft, nondistended abdomen. No guarding, no rebound. Normal bowel sounds present. No CVA tenderness bilaterally. Mild generalized tenderness (cannot elicit thorough abd exam w/o bed, however). Extremities: No cyanosis, clubbing, or edema b/l. No lower extremity asymmetry. Kimberly negative bilaterally. NEUROLOGICAL: Normal speech, normal gait. PSYCH: Normal mood, normal affect. - Related Data Allergies/Adverse Reactions: hydromorphone [From Dilaudid] Allergy (Verified 11/14/18 15:31) latex Allergy (Verified 11/14/18 15:31) swelling, itching Past Medical History - Past Medical History Cardiac Medical History: Reports: Hx Hypertension - not currently Denies: Hx Pulmonary Embolism, Hx Heart Murmur Pulmonary Medical History: Reports: Hx Asthma Denies: Hx Sleep Apnea, Hx Tuberculosis Neurological Medical History: Denies: Hx Cerebrovascular Accident Endocrine Medical History: Denies: Hx Hyperthyroidism, Hx Hypothyroidism Renal/ Medical History: Denies: Hx Kidney Stones, Hx Ovarian Cysts, Hx Peritoneal Dialysis, Hx Pelvic Inflammatory Disease Malignancy Medical History: Denies: Hx Breast Cancer, Hx Cervical Cancer, Hx Ovarian Cancer GI Medical History: Denies: Hx Gastroesophageal Reflux Disease, Hx Hiatal Hernia, Hx Ulcer Musculoskeltal Medical History: Denies Hx Fibromyalgia Psychiatric Medical History: Reports: Hx Bipolar Disorder, Hx Depression Denies: Hx Post Traumatic Stress Disorder, Hx Schizophrenia Traumatic Medical History: Denies: Hx Fractures Infectious Medical History: Denies: Hx HIV Past Surgical History: Reports: Hx Section - x4, Hx Kidney (Renal Surgery) - Immunizations Immunizations up to date: Yes Hx Diphtheria, Pertussis, Tetanus Vaccination: Yes Physical Exam - Vital signs Vitals: Temp Pulse Resp BP Pulse Ox 98.9 F 99 20 115/66 100 11/14/18 15:40 11/14/18 15:40 11/14/18 15:40 11/14/18 15:40 11/14/18 15:40 Course - Vital Signs Vital signs: Temp Pulse Resp BP Pulse Ox 98.9 F 99 20 115/66 100 11/14/18 15:40 11/14/18 15:40 11/14/18 15:40 11/14/18 15:40 11/14/18 15:40
--- NOTE | 2018-11-14 17:04 | EKG REPORT ---
SEVERITY:- NORMAL ECG - SINUS RHYTHM : Confirmed by: Jose Turner MD 14-Nov-2018 17:03:22
[2018-11-14 17:24] LABS: ABSOLUTE EOSINOPHILS # (AUTO) 0.2 10^3/uL (0.0-0.6); ABSOLUTE LYMPHOCYTES (AUTO) 2.5 10^3/uL (0.5-4.7); ABSOLUTE MONOCYTES (AUTO) 0.5 10^3/uL (0.1-1.4); ABSOLUTE NEUT (AUTO) 2.3 10^3/uL (1.7-8.2); BASOPHILS % (AUTO) 0.8 % (0-2); EOSINOPHILS % (AUTO) 2.8 % (0-6); HEMATOCRIT 38.7 % (36.0-47.0); HEMOGLOBIN 12.4 g/dL (12.0-15.5); LYMPHOCYTES % (AUTO) 45.8 % (13-45); MEAN CORPUSCULAR HEMOGLOBIN 26.8 pg (27.0-33.4); MEAN CORPUSCULAR VOLUME 84 fl (80-97); MONOCYTES % (AUTO) 8.3 % (3-13); PLATELET COUNT 328 10^3/uL (150-450); RED BLOOD COUNT 4.62 10^6/uL (3.72-5.28); RED CELL DISTRIBUTION WIDTH 15.9 % (11.5-14.0); SEGMENTED NEUTROPHILS % (AUTO) 42.3 % (42-78); TOTAL CELLS COUNTED % (AUTO) 100 %; WHITE BLOOD COUNT 5.5 10^3/uL (4.0-10.5)
[2018-11-14 17:31] LABS: APPEARANCE,URINE SLIGHTLY-CLOUDY; BILIRUBIN,URINE NEGATIVE (NEGATIVE); COLOR,URINE YELLOW; GLUCOSE, URINE NEGATIVE (NEGATIVE); KETONES,URINE NEGATIVE (NEGATIVE); LEUKOCYTE ESTERASE,URINE NEGATIVE (NEGATIVE); NITRITE,URINE NEGATIVE (NEGATIVE); PROTEIN,URINE NEGATIVE (NEGATIVE); URINE SPECIFIC GRAVITY 1.027
[2018-11-14 17:44] LABS: ALANINE AMINOTRANSFERASE 24 U/L (9-52); ALBUMIN 4.4 g/dL (3.5-5.0); ALKALINE PHOSPHATASE 57 U/L (38-126); ANION GAP 10 (5-19); ASPARTATE AMINO TRANSFERASE 26 U/L (14-36); BILIRUBIN,DIRECT 0.4 mg/dL (0.0-0.4); BILIRUBIN,TOTAL 0.8 mg/dL (0.2-1.3); BLOOD UREA NITROGEN 11 mg/dL (7-20); CALCIUM 9.5 mg/dL (8.4-10.2); CARBON DIOXIDE 30 mmol/L (22-30); CHLORIDE 103 mmol/L (98-107); GLUCOSE 91 mg/dL (75-110); LIPASE 90.7 U/L (23-300); POTASSIUM 4.4 mmol/L (3.6-5.0); SODIUM 143.2 mmol/L (137-145); TOTAL PROTEIN 7.5 g/dL (6.3-8.2)
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
[2018-11-14] MEDS ORDERED: ONDANSETRON ODT 4 MG TAB (6 TAB/ER DISP) PO PRN (18:49)
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
== END 2018-11-14 18:58 | disposition home or self-care (01) ==
LOC: ER 15:30
DX: R11.2 Nausea with vomiting, unspecified (principal); R19.7 Diarrhea, unspecified; R55 Syncope and collapse; J45.909 Unspecified asthma, uncomplicated; F17.210 Nicotine dependence, cigarettes, uncomplicated; Z98.51 Tubal ligation status; Z88.5 Allergy status to narcotic agent; Z91.040 Latex allergy status
CPT/HCPCS: 93005; 99284; 96361; 96374; 36415; 83690; 85025; 81025; 80053; 81001; 71045; 93010; J2405; J7030

== ENCOUNTER 2019-04-30 06:27 | Emergency (ER) | payer SELFPAY ==
[2019-04-30 06:33] VITALS: BP 114/81
[2019-04-30] MEDS ORDERED: ACETAMINOPHEN 325 MG TABLET PO ONE (06:41)
--- NOTE | 2019-04-30 08:14 | ER Document Report ---
ED Oral Problem - General Chief Complaint: Toothache Stated Complaint: LEFT SIDE TOOTHACHE Time Seen by Provider: 04/30/19 08:11 TRAVEL OUTSIDE OF THE [place] IN LAST 30 DAYS: No - HPI Notes: 28-year-old female to the emergency department with complaints of left upper toothache that began this morning and about 4 AM. She states that the pain radiates down into her neck and down her left arm. She denies any fevers or chills. She states that she is only had Tylenol that was given to her upon arrival here in the emergency department. She states that Tylenol has not helped. She denies any chest pain, shortness of breath, headache, drooling, inability to open her mouth. She smokes. - Related Data Allergies/Adverse Reactions: hydromorphone [From Dilaudid] Allergy (Verified 11/14/18 15:31) latex Allergy (Verified 11/14/18 15:31) swelling, itching Past Medical History - General Information source: Patient - Social History Smoking Status: Current Every Day Smoker Frequency of alcohol use: None Drug Abuse: None Family History: Reviewed & Not Pertinent Patient has suicidal ideation: No Patient has homicidal ideation: No - Past Medical History Cardiac Medical History: Reports: Hx Hypertension - not currently Denies: Hx Pulmonary Embolism, Hx Heart Murmur Pulmonary Medical History: Reports: Hx Asthma Denies: Hx Sleep Apnea, Hx Tuberculosis Neurological Medical History: Denies: Hx Cerebrovascular Accident Endocrine Medical History: Denies: Hx Hyperthyroidism, Hx Hypothyroidism Renal/ Medical History: Denies: Hx Kidney Stones, Hx Ovarian Cysts, Hx Peritoneal Dialysis, Hx Pelvic Inflammatory Disease Malignancy Medical History: Denies: Hx Breast Cancer, Hx Cervical Cancer, Hx Ovarian Cancer GI Medical History: Denies: Hx Gastroesophageal Reflux Disease, Hx Hiatal Hernia, Hx Ulcer Musculoskeletal Medical History: Denies Hx Fibromyalgia Psychiatric Medical History: Reports: Hx Bipolar Disorder, Hx Depression Denies: Hx Post Traumatic Stress Disorder, Hx Schizophrenia Traumatic Medical History: Denies: Hx Fractures Infectious Medical History: Denies: Hx HIV Past Surgical History: Reports: Hx Section - x4, Hx Kidney (Renal Surgery), Hx Tubal Ligation - Immunizations Immunizations up to date: Yes Hx Diphtheria, Pertussis, Tetanus Vaccination: Yes Hx Pneumococcal Vaccination: 03/08/13 Review of Systems - Review of Systems Constitutional: denies: Chills, Fever EENT: Dental problem. denies: Blurred vision, Double vision, Ear pain Cardiovascular: denies: Chest pain, Palpitations, Syncope, Dizziness, Lightheaded Respiratory: denies: Cough, Short of breath Gastrointestinal: denies: Abdominal pain, Diarrhea, Nausea, Vomiting Skin: No symptoms reported Neurological/Psychological: Headaches -: Yes All other systems reviewed and negative Physical Exam - Vital signs Vitals: Temp Pulse Resp BP Pulse Ox 98.5 F 105 H 24 H 114/81 99 04/30/19 06:31 04/30/19 06:31 04/30/19 06:31 04/30/19 06:31 04/30/19 06:31 Interpretation: Normal - General General appearance: Alert, Other In distress: Mild Notes: patient is mild pain distress, holding the right side of her face where tooth aches. initially would not cooperate with exam but after reassurance, patient allowed me to appropriately exam her. - HEENT Head: Normocephalic, Atraumatic Eyes: Normal Pupils: PERRL Ears: Normal External canal: Normal Tympanic membrane: Normal Sinus: Normal Nasal: Normal Mouth/Lips: Caries - there are multiple dental caries. Tooth number 16 is broken down to the gum line and TTP. There is no facial swelling or miguel ángel fluctuant dental abscess. No trismus, no quintin's angina. airway is grossly patent. Mucous membranes: Normal Pharynx: Normal, Post nasal drainage. No: Peritonsillar abscess, Retropharyngeal abscess, Tonsillar hypertrophy, Uvular edema, Potential airway comprom. Neck: Normal, Supple. No: Lymphadenopathy, Meningismus - Respiratory Respiratory status: No respiratory distress Chest status: Nontender. No: Accessory muscle use Breath sounds: Normal. No: Rales, Rhonchi, Wheezing Chest palpation: Normal - Cardiovascular Rhythm: Regular Heart sounds: Normal auscultation Murmur: No - Abdominal Inspection: Normal Distension: No distension Bowel sounds: Normal Tenderness: Nontender Organomegaly: No organomegaly - Neurological Neuro grossly intact: Yes Cognition: Normal Orientation: AAOx4 Price Coma Scale Eye Opening: Spontaneous Price Coma Scale Verbal: Oriented [place] Coma Scale Motor: Obeys Commands [place] Coma Scale Total: 15 Speech: Normal Cranial nerves: Normal Cerebellar coordination: Normal Motor strength normal: LUE, RUE, LLE, RLE 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 No: Pronator drift Sensory: Normal - Psychological Associated symptoms: Normal affect, Irritable - Skin Skin Temperature: Warm Skin Moisture: Dry Skin Color: Normal Course - Re-evaluation Re-evalutation: 04/30/19 09:23 Patient's pain is significantly improved since getting medicine here in the emergency department she is no longer in any distress. She states that her pain is a 0 out of 5 now. We will send patient home with antibiotics as well as pain medicine. Will give information for dental follow-up. She agrees with the plan. - Vital Signs Vital signs: Temp Pulse Resp BP Pulse Ox 98.5 F 105 H 24 H 114/81 99 04/30/19 06:31 04/30/19 06:31 04/30/19 06:31 04/30/19 06:31 04/30/19 06:31 Discharge - Discharge Clinical Impression: Dental caries, Toothache Condition: Stable Disposition: HOME, SELF-CARE Instructions: Toothache ([facility]) Additional Instructions: COMPLETE ANTIBIOTICS. TAKE MEDICINES PRESCRIBED. RETURN IF WORSE -- INABILITY TO OPEN MOUTH, SHORTNESS OF BREATH, FEVERS, FACIAL SWELLING, OR DROOLING. Prescriptions: Amoxicillin 1 tab PO TID #30 tab Ibuprofen [Motrin 800 mg Tablet] 800 mg PO Q8H PRN #30 tab PRN Reason: Oxycodone HCl/Acetaminophen [Percocet 5-325 mg Tablet] 1 tab PO Q6H PRN #6 tablet PRN Reason: Lidocaine HCl [Xylocaine 2% Viscous Soln 20 ml Udcup] 15 ml PO TID #1 bottle Forms: Return to Work Referrals: [facility] [Provider Group] - Follow up in 1 week
[2019-04-30] MEDS ORDERED: OXYCODONE-ACETAMINOPHEN 5-325 MG TABLET PO ONE (08:19)
[2019-04-30] MEDS ORDERED: LIDOCAINE 2% URO-JET 5 ML KIT MM ONE (08:19)
[2019-04-30] MEDS ORDERED: KETOROLAC TROMETHAMINE 60 MG/2 ML SDV IM ONE (08:19)
[2019-04-30] MEDS ORDERED: LIDOCAINE 2% VISCOUS SOLN 20 ML UDCUP PO ONE (08:47)
== END 2019-04-30 09:43 | disposition home or self-care (01) ==
LOC: ER 06:27
DX: K02.9 Dental caries, unspecified (principal); F17.200 Nicotine dependence, unspecified, uncomplicated; Z88.6 Allergy status to analgesic agent; Z91.040 Latex allergy status; Z98.51 Tubal ligation status
CPT/HCPCS: 99282; 96372; J1885; J3490

== ENCOUNTER 2019-05-20 11:59 | Emergency (ER) | payer OTHER ==
[2019-05-20 12:11] VITALS: BP 116/74
[2019-05-20] MEDS ORDERED: OXYCODONE-ACETAMINOPHEN 5-325 MG TABLET PO ONE (13:12)
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
== END 2019-05-20 14:57 | disposition home or self-care (01) ==
LOC: ER 11:59
DX: S16.1XXA Strain of muscle, fascia and tendon at neck level, initial encounter (principal); S39.012A Strain of muscle, fascia and tendon of lower back, initial encounter; S93.402A Sprain of unspecified ligament of left ankle, initial encounter; V89.2XXA Person injured in unspecified motor-vehicle accident, traffic, initial encounter; Z91.040 Latex allergy status
CPT/HCPCS: 99284; 73610; 72110; 72070; 72125; L1902

== ENCOUNTER 2019-07-15 02:31 | Emergency (ER) | payer MEDICAID, OTHER ==
[2019-07-15] MEDS ORDERED: ACETAMINOPHEN 325 MG TABLET PO ONE (02:56)
[2019-07-15] MEDS ORDERED: KETOROLAC TROMETHAMINE 60 MG/2 ML SDV IM ONE (05:36)
[2019-07-15] MEDS ORDERED: PENICILLIN V POTASSIUM 500 MG TABLET PO ONE (05:36)
--- NOTE | 2019-07-15 05:42 | ER Document Report ---
HPI - HPI Time Seen by Provider: 07/15/19 05:31 Pain Level: 5 Context: Patient is a 28-year-old female that comes the emergency department for chief complaint of dental pain. She states she has waves of pain radiating from the left side of her face down her body and upper head. She states pain started over the past day. She comes by EMS. She denies swelling of the face, difficulty swallowing or breathing, fever, or any other complaints. She states she has known dental fractures, she states she had an infection in the same tooth last year. She does not have a dentist and has not seen one anytime recently. She denies any daily medications, she denies . - REPRODUCTIVE Reproductive: DENIES: : Past Medical History - General Information source: Patient - Social History Smoking Status: Current Every Day Smoker Frequency of alcohol use: None Drug Abuse: None Lives with: Family Family History: Reviewed & Not Pertinent Patient has suicidal ideation: No Patient has homicidal ideation: No - Past Medical History Cardiac Medical History: Denies: Hx Pulmonary Embolism, Hx Heart Murmur Pulmonary Medical History: Reports: Hx Asthma Denies: Hx Sleep Apnea, Hx Tuberculosis Neurological Medical History: Denies: Hx Cerebrovascular Accident Endocrine Medical History: Denies: Hx Hyperthyroidism, Hx Hypothyroidism Renal/ Medical History: Denies: Hx Kidney Stones, Hx Ovarian Cysts, Hx Peritoneal Dialysis, Hx Pelvic Inflammatory Disease Malignancy Medical History: Denies: Hx Breast Cancer, Hx Cervical Cancer, Hx Ovarian Cancer GI Medical History: Denies: Hx Gastroesophageal Reflux Disease, Hx Hiatal Hernia, Hx Ulcer Musculoskeletal Medical History: Denies Hx Fibromyalgia Psychiatric Medical History: Reports: Hx Bipolar Disorder, Hx Depression Denies: Hx Post Traumatic Stress Disorder, Hx Schizophrenia Traumatic Medical History: Denies: Hx Fractures Infectious Medical History: Denies: Hx HIV Past Surgical History: Reports: Hx Section - x4, Hx Kidney (Renal Surgery), Hx Tubal Ligation - Immunizations Immunizations up to date: Yes Hx Diphtheria, Pertussis, Tetanus Vaccination: Yes Hx Pneumococcal Vaccination: 03/08/13 Vertical Provider Document - CONSTITUTIONAL General Appearance: WD/WN. negative: No Apparent Distress - Patient does have her hand on the left side of her face but she does not appear to be in severe pain - INFECTION CONTROL TRAVEL OUTSIDE OF THE [place] IN LAST 30 DAYS: No - HEENT HEENT: Atraumatic, Normocephalic, PERRLA. negative: Pharyngeal Exudate - Unremarkable oropharyngeal exam, normal tongue, patent airway, Pharyngeal Tenderness, Pharyngeal Erythema Mouth Diagram: 1 - Multiple dental caries, however this dental caries is the area that patient indicates her pain. There is no overt erythema, swelling, there is no noted induration or fluctuance, unremarkable otherwise - NECK Neck: Normal Inspection - RESPIRATORY Respiratory: Breath Sounds Normal, No Respiratory Distress - CARDIOVASCULAR Cardiovascular: Regular Rate, Regular Rhythm - GI/ABDOMEN Gastrointestinal: Abdomen Soft, Abdomen Non-Tender. negative: Abdomen Tender - BACK Back: Normal Inspection - MUSCULOSKELETAL/EXTREMETIES Musculoskeletal/Extremeties: MAEW, FROM, Non-Tender - NEURO Level of Consciousness: Awake, Alert, Appropriate Motor/Sensory: No Motor Deficit, No Sensory Deficit - DERM Integumentary: Warm, Dry, No Rash Course - Re-evaluation Re-evalutation: Patient comes by EMS for chief complaint of dental pain. There is no swelling of the face, patient has no trismus, there is no abscess noted and no significant swelling to the area. Patient was provided with Toradol, antibiotics, prescribed antibiotics, ibuprofen, lidocaine, referred to dental follow-up. Discussed importance of dental follow-up. Discussed return precautions. Patient states understanding and agreement. - Vital Signs Vital signs: Temp Pulse Resp BP Pulse Ox 98.9 F 105 H 20 112/69 98 07/15/19 02:53 07/15/19 03:17 07/15/19 03:17 07/15/19 02:53 07/15/19 03:17 Discharge - Discharge Clinical Impression: Pain, dental Condition: Stable Disposition: HOME, SELF-CARE Additional Instructions: Your evaluation shows dental caries and you appear to be developing a dental i nfection. Take the antibiotics as prescribed to completion. Call the listed referral to set up your appointment, if you do not get this repaired this will continue to happen. Come back if you are worse including swelling of the face, inability to open the jaw, fever, difficulty swallowing, or any other concerning symptoms. [facility] [address] [place], [address] Prescriptions: Ibuprofen [Ibu] 800 mg PO TID PRN #30 tablet PRN Reason: Penicillin V Potassium [Penicillin Vk 500 mg Tablet] 500 mg PO BID #20 tablet Lidocaine HCl [Xylocaine 2% Viscous Soln 15 ml Udcup] 15 ml PO TID PRN #1 udc PRN Reason:
[2019-07-15 05:53] VITALS: BP 142/86
== END 2019-07-15 05:50 | disposition home or self-care (01) ==
LOC: ER 02:31
DX: K08.9 Disorder of teeth and supporting structures, unspecified (principal); K02.9 Dental caries, unspecified; F17.200 Nicotine dependence, unspecified, uncomplicated
CPT/HCPCS: 96372; 99283; J1885

== ENCOUNTER 2019-07-30 14:51 | Emergency (ER) | payer SELFPAY ==
[2019-07-30 14:57] VITALS: BP 124/82
[2019-07-30] MEDS ORDERED: LIDOCAINE 2% VISCOUS SOLN 15 ML UDCUP PO ONE (15:06)
[2019-07-30] MEDS ORDERED: KETOROLAC TROMETHAMINE 60 MG/2 ML SDV IM ONE (15:09)
--- NOTE | 2019-07-30 15:13 | ER Document Report ---
HPI - HPI Time Seen by Provider: 07/30/19 15:06 Notes: Patient is a 28-year-old female no significant past medical history presents complaining of right-sided dental pain to #2 and 31 respectively to the right side of the mouth that is been ongoing for the past day. She has not noticed any obvious abscess or swelling of the face. Patient has been noted to have poor dentition. She has been here several times for dental pain in the past. She is able to eat and drink, does have decreased p.o. intake. She is urinating normally and having normal bowel movements. She has not been seen by dentist. No other recent illness. No drooling or hoarseness. Denies any headache, fever, head injury, neck pain, changes in vision/speech/mentation/hearing, URI, sore throat, chest pain, palpitations, syncope, cough, shortness of breath, wheeze, dyspnea, abdominal pain, nausea/vomiting/diarrhea, urinary retention, dysuria, hematuria, or rash. - ROS Systems Reviewed and Negative: Yes All other systems reviewed and negative - REPRODUCTIVE Reproductive: DENIES: : Past Medical History - Social History Smoking Status: Current Every Day Smoker Family History: Reviewed & Not Pertinent - Past Medical History Cardiac Medical History: Reports: Hx Hypertension - not currently Denies: Hx Pulmonary Embolism, Hx Heart Murmur Pulmonary Medical History: Reports: Hx Asthma Denies: Hx Sleep Apnea, Hx Tuberculosis Neurological Medical History: Denies: Hx Cerebrovascular Accident Endocrine Medical History: Denies: Hx Hyperthyroidism, Hx Hypothyroidism Renal/ Medical History: Denies: Hx Kidney Stones, Hx Ovarian Cysts, Hx Peritoneal Dialysis, Hx Pelvic Inflammatory Disease Malignancy Medical History: Denies: Hx Breast Cancer, Hx Cervical Cancer, Hx Ovarian Cancer GI Medical History: Denies: Hx Gastroesophageal Reflux Disease, Hx Hiatal Hernia, Hx Ulcer Musculoskeletal Medical History: Denies Hx Fibromyalgia Psychiatric Medical History: Reports: Hx Bipolar Disorder, Hx Depression Denies: Hx Post Traumatic Stress Disorder, Hx Schizophrenia Traumatic Medical History: Denies: Hx Fractures Infectious Medical History: Denies: Hx HIV Past Surgical History: Reports: Hx Section - x4, Hx Kidney (Renal Surgery), Hx Tubal Ligation - Immunizations Immunizations up to date: Yes Hx Diphtheria, Pertussis, Tetanus Vaccination: Yes Hx Pneumococcal Vaccination: 03/08/13 Vertical Provider Document - CONSTITUTIONAL Agree With Documented VS: Yes Notes: PHYSICAL EXAMINATION: GENERAL: Well-appearing, well-nourished and in no acute distress. HEAD: Atraumatic, normocephalic. EYES: Pupils equal round and reactive to light, extraocular movements intact, sclera anicteric, conjunctiva are normal. ENT: Nares patent and without discharge. oropharynx clear without exudates. No tonsilar hypertrophy or erythema. Moist mucous membranes. No sinus tenderness. Uvula midline. No palatine shift. No tongue protrusion. No respiratory compromise. Mouth: Poor dentition. + Moderate to severe decay and mild gingivitis. No obvious abscess or discharge noted. No facial swelling. + tenderness to tooth #2/31. NECK: Normal range of motion, supple without lymphadenopathy. No rigidity/meningismus. LUNGS: Breath sounds clear to auscultation bilaterally and equal. No wheezes rales or rhonchi. HEART: Regular rate and rhythm without murmurs, rubs, gallops. NEUROLOGICAL: Cranial nerves grossly intact. Normal speech, normal gait. Normal sensory, motor exams PSYCH: Normal mood, normal affect. SKIN: Warm, Dry, normal turgor, no rashes or lesions noted. - INFECTION CONTROL TRAVEL OUTSIDE OF THE [place] IN LAST 30 DAYS: No Course - Re-evaluation Re-evalutation: 07/30/19 15:11 Patient is an afebrile, well-hydrated, 28-year-old female who presents to the ED with dental pain, suspect nerve root etiology versus infection. Vitals are acceptable. PE is otherwise unremarkable. No I&D, labs, or imaging warranted at this time based on H&P. Viscous lidocaine dispensed today. I will send her home with a prescription for penicillin. Low suspicion for any meningitis, sepsis, peritonsillar/pharyngeal abscess, respiratory compromise, Leopoldo's, temporal arteritis, or other emergent systemic condition at this time. Patient is aware this condition can change from initial presentation and she needs to m onitor symptoms closely. Conservative measures otherwise for symptoms. Call to schedule an appointment with a dentist for further evaluation and management. Recheck with your PCM this week as well. Return to the ED with any worsening/concerning symptoms otherwise as reviewed in discharge. Patient is in agreement. - Vital Signs Vital signs: Temp Pulse Resp BP Pulse Ox 98.2 F 91 16 124/82 100 07/30/19 14:55 07/30/19 14:55 07/30/19 14:55 07/30/19 14:55 07/30/19 14:55 Discharge - Discharge Clinical Impression: Pain, dental Condition: Stable Disposition: HOME, SELF-CARE Instructions: Penicillin V K ([facility]), Toothache ([facility]) Additional Instructions: [place] and floss twice daily Maintain fluid intake Take antibiotics as directed Mouthwash, salt water gargles, peroxide rinse as needed Tylenol/ibuprofen as needed Recheck with PCM this week Call today/tomorrow and schedule an appointment with your dentist for further evaluation Return to the ED with any worsening symptoms and/or development of fever, headache, facial swelling, swelling of lips/tongue/throat, trouble swallowing, drooling, hoarseness, neck pain/stiffness, chest pain, palpitations, syncope, shortness of breath, trouble breathing, abdominal pain, n/v/d, numbness/tingling, or other worsening symptoms that are concerning to you. Prescriptions: Ibuprofen [Motrin 800 mg Tablet] 800 mg PO Q8H PRN #15 tab PRN Reason: Penicillin V Potassium [Penicillin Vk 250 mg Tablet] 500 mg PO BID #40 tablet Forms: Smoking Cessation Education Referrals: [facility] [Provider Group] - Follow up in 3-5 days
== END 2019-07-30 16:04 | disposition home or self-care (01) ==
LOC: ER 14:51
DX: K02.9 Dental caries, unspecified (principal); K05.10 Chronic gingivitis, plaque induced; K08.89 Other specified disorders of teeth and supporting structures; F17.200 Nicotine dependence, unspecified, uncomplicated; I10 Essential (primary) hypertension; J45.909 Unspecified asthma, uncomplicated
CPT/HCPCS: 99282; 96372; J1885; J3490

== ENCOUNTER 2020-02-14 23:06 | Emergency (ER) | payer SELFPAY ==
--- NOTE | 2020-02-14 23:44 | ER Document Report ---
ED Medical Screen (RME) - General Chief Complaint: Shortness Of Breath Stated Complaint: COUGH/CHILLS/SHORTNESS OF BREATH/HEADACHE Time Seen by Provider: 02/14/20 23:42 Mode of Arrival: Wheelchair Information source: Patient Notes: 29-year-old female presents to ED with shortness of breath body aches fevers chills diarrhea headache. She states her temperature was 101 about 8 PM. She states she took 400 mg of ibuprofen. She states she is extremely short of breath. She has a history of asthma but has not had any problems with her asthma in years. She is wheezing at this time. She also has rales and crackles. She is also coughing nonproductive dry cough at this time. She is being seen during the COVID pandemic for respiratory symptoms. I have greeted and performed a rapid initial assessment of this patient. A comprehensive ED assessment and evaluation of the patient, analysis of test results and completion of medical decision making process will be conducted by an additional ED providers. TRAVEL OUTSIDE OF THE [place] IN LAST 30 DAYS: No - Related Data Allergies/Adverse Reactions: hydromorphone [From Dilaudid] Allergy (Verified 07/15/19 02:49) latex Allergy (Verified 07/15/19 02:49) swelling, itching Past Medical History - Past Medical History Cardiac Medical History: Reports: Hx Hypertension - not currently Denies: Hx Pulmonary Embolism, Hx Heart Murmur Pulmonary Medical History: Reports: Hx Asthma Denies: Hx Sleep Apnea, Hx Tuberculosis Neurological Medical History: Denies: Hx Cerebrovascular Accident Endocrine Medical History: Denies: Hx Hyperthyroidism, Hx Hypothyroidism Renal/ Medical History: Denies: Hx Kidney Stones, Hx Ovarian Cysts, Hx Peritoneal Dialysis, Hx Pelvic Inflammatory Disease Malignancy Medical History: Denies: Hx Breast Cancer, Hx Cervical Cancer, Hx Ovarian Cancer GI Medical History: Denies: Hx Gastroesophageal Reflux Disease, Hx Hiatal Luis ia, Hx Ulcer Musculoskeltal Medical History: Denies Hx Fibromyalgia Psychiatric Medical History: Reports: Hx Bipolar Disorder, Hx Depression Denies: Hx Post Traumatic Stress Disorder, Hx Schizophrenia Traumatic Medical History: Denies: Hx Fractures Infectious Medical History: Denies: Hx HIV Past Surgical History: Reports: Hx Section - x4, Hx Kidney (Renal Surgery), Hx Tubal Ligation - Immunizations Immunizations up to date: Yes Hx Diphtheria, Pertussis, Tetanus Vaccination: Yes Physical Exam - Vital signs Vitals: Temp Pulse Resp BP Pulse Ox 99.0 F 110 H 20 118/82 100 02/14/20 23:13 02/14/20 23:13 02/14/20 23:13 02/14/20 23:13 02/14/20 23:13 Course - Vital Signs Vital signs: Temp Pulse Resp BP Pulse Ox 99.0 F 110 H 20 118/82 100 02/14/20 23:13 02/14/20 23:13 02/14/20 23:13 02/14/20 23:13 02/14/20 23:13
--- NOTE | 2020-02-15 00:21 | ER Document Report ---
ED Respiratory Problem - General Chief Complaint: Shortness Of Breath Stated Complaint: COUGH/CHILLS/SHORTNESS OF BREATH/HEADACHE Time Seen by Provider: 02/14/20 23:42 Mode of Arrival: Wheelchair TRAVEL OUTSIDE OF THE [place] IN LAST 30 DAYS: No - HPI Notes: 29-year-old female presents with fever, chills, nonproductive cough, shortness of breath, headache, and diarrhea. She has been sick for 2 days. She reports that her fever was 101F around 8 PM, she took 400 mg ibuprofen at home. She states that her cough sounds bad. She reports a history of asthma that is otherwise well controlled. She states that her mother is currently sick as well. - Related Data Allergies/Adverse Reactions: hydromorphone [From Dilaudid] Allergy (Verified 07/15/19 02:49) latex Allergy (Verified 07/15/19 02:49) swelling, itching Past Medical History - General Information source: Patient - Social History Smoking Status: Unknown if Ever Smoked Family History: Reviewed & Not Pertinent - Past Medical History Cardiac Medical History: Reports: Hx Hypertension - not currently Denies: Hx Pulmonary Embolism, Hx Heart Murmur Pulmonary Medical History: Reports: Hx Asthma Denies: Hx Sleep Apnea, Hx Tuberculosis Neurological Medical History: Denies: Hx Cerebrovascular Accident Endocrine Medical History: Denies: Hx Hyperthyroidism, Hx Hypothyroidism Renal/ Medical History: Denies: Hx Kidney Stones, Hx Ovarian Cysts, Hx Peritoneal Dialysis, Hx Pelvic Inflammatory Disease Malignancy Medical History: Denies: Hx Breast Cancer, Hx Cervical Cancer, Hx Ova chaya Cancer GI Medical History: Denies: Hx Gastroesophageal Reflux Disease, Hx Hiatal Hernia, Hx Ulcer Musculoskeletal Medical History: Denies Hx Fibromyalgia Psychiatric Medical History: Reports: Hx Bipolar Disorder, Hx Depression Denies: Hx Post Traumatic Stress Disorder, Hx Schizophrenia Traumatic Medical History: Denies: Hx Fractures Infectious Medical History: Denies: Hx HIV Past Surgical History: Reports: Hx Section - x4, Hx Kidney (Renal Surgery), Hx Tubal Ligation - Immunizations Immunizations up to date: Yes Hx Diphtheria, Pertussis, Tetanus Vaccination: Yes Hx Pneumococcal Vaccination: 03/08/13 Review of Systems - Review of Systems Constitutional: Chills, Fever EENT: Throat pain Cardiovascular: denies: Chest pain Respiratory: Cough, Short of breath Gastrointestinal: Diarrhea Genitourinary: No symptoms reported Female Genitourinary: No symptoms reported Musculoskeletal: No symptoms reported Skin: No symptoms reported Hematologic/Lymphatic: No symptoms reported Neurological/Psychological: Headaches Physical Exam - Vital signs Vitals: Temp Pulse Resp BP Pulse Ox 99.0 F 110 H 20 118/82 100 02/14/20 23:13 02/14/20 23:13 02/14/20 23:13 02/14/20 23:13 02/14/20 23:13 - General General appearance: Alert Notes: Appears to not be feeling well - HEENT Head: Normocephalic, Atraumatic Extraocular movements intact: Yes Pupils: PERRL - Respiratory Respiratory status: No respiratory distress Breath sounds: Nonproductive cough, Wheezing - Faint and expiratory bilaterally - Cardiovascular Rhythm: Regular Heart sounds: Normal auscultation - Abdominal Tenderness: Nontender - Extremities General upper extremity: Normal ROM General lower extremity: Normal ROM - Neurological Neuro grossly intact: Yes Orientation: AAOx4 - Psychological Associated symptoms: Normal affect - Skin Skin Temperature: Warm Course - Re-evaluation Re-evalutation: 29-year-old female here with fever, cough, shortness of breath, diarrhea for the past 2 days. She appears to not be feeling well on exam. She does have some mild end expiratory wheezing. I suspect that she has contracted COVID. Another viral illness is possible as well. I would have a low suspicion for acute bacterial etiology at this time. Will treat symptomatically with neb, Decadron, Robitussin. Will check labs and chest x-ray. She is 100% on room air. Tachycardia had resolved at time of physical exam and evaluation. 02/15/20 02:29 Labs reviewed. No leukocytosis or left shift. No acute anemia. Electrolytes within normal limits. Creatinine within normal limits. No elevation of LFTs. Glucose a little low, will have patient eat. 02/15/20 04:00 Urine not suggestive of UTI. No consolidation on chest x-ray. Patient was updated on results. She reported improvement in her symptoms. She is given a Tessalon Perle for sore throat. I discussed with her symptomatic m anagement at home. I wrote her for albuterol, Tessalon Perles and Robitussin. Return precautions given, patient stable at time of discharge. - Vital Signs Vital signs: Temp Pulse Resp BP Pulse Ox 98.8 F 110 H 12 117/81 98 02/15/20 05:00 02/14/20 23:13 02/15/20 05:01 02/15/20 05:00 02/15/20 05:01 - Laboratory Result Diagrams: 02/15/20 00:12 02/15/20 00:12 Laboratory results interpreted by me: 02/15/20 02/15/20 02/15/20 00:12 00:12 03:20 RDW 16.4 H Glucose 68 L POC Glucose Urine Urobilinogen 2.0 H Ur Leukocyte Esterase TRACE H 02/15/20 04:56 RDW Glucose POC Glucose 132 H Urine Urobilinogen Ur Leukocyte Esterase - Diagnostic Test Radiology reviewed: Image reviewed, Reports reviewed Discharge - Discharge Clinical Impression: Suspected COVID-19 virus infection Condition: Stable Disposition: HOME, SELF-CARE Additional Instructions: You have been tested for COVID, please adhere to strict quarantine at home until results. Please not have any visitors over. If you do have to go out in public for emergency, please be sure you wear a mask at all times. You may continue Tylenol, cough syrup, Tessalon Perles for sore throat, and use the albuterol inhaler. Please return to the emergency department for any concerning worsening symptoms. Prescriptions: Benzonatate [Tessalon Perles 100 mg Capsule] 100 mg PO Q8HP PRN #40 capsule PRN Reason: Albuterol Sulfate [Proair HFA Inhalation Aerosol 8.5 gm MDI] 2 puff IH Q4H PRN #1 mdi PRN Reason: Guaifenesin/Codeine Phos [Robitussin-AC Syrup 59 ml] 10 ml PO QIDP PRN #200 ml PRN Reason:
[2020-02-15] MEDS ORDERED: IPRATROPIUM/ALBUTEROL 0.5-2.5 MG/3 ML AMPUL NEB ONE (00:32)
[2020-02-15] MEDS ORDERED: GUAIFENESIN 600 MG TABLET.SA PO ONE (00:33)
[2020-02-15] MEDS ORDERED: GUAIFENESIN/D-METHORPHAN (200-20 MG) SYRUP 10 ML PO ONE (00:35)
[2020-02-15] MEDS ORDERED: DEXAMETHASONE SOD PHOS INJ 10 MG/1 ML VIAL IV ONE (00:36)
[2020-02-15 00:53] LABS: ABSOLUTE BASOPHILS # (AUTO) 0.1 10^3/uL (0.0-0.2); ABSOLUTE EOSINOPHILS # (AUTO) 0.2 10^3/uL (0.0-0.6); ABSOLUTE LYMPHOCYTES (AUTO) 2.1 10^3/uL (0.5-4.7); ABSOLUTE MONOCYTES (AUTO) 0.7 10^3/uL (0.1-1.4); ABSOLUTE NEUT (AUTO) 3.1 10^3/uL (1.7-8.2); BASOPHILS % (AUTO) 0.9 % (0-2); EOSINOPHILS % (AUTO) 3.9 % (0-6); HEMATOCRIT 39.5 % (36.0-47.0); HEMOGLOBIN 12.7 g/dL (12.0-15.5); LYMPHOCYTES % (AUTO) 34.4 % (13-45); MEAN CORPUSCULAR HEMOGLOBIN 27.3 pg (27.0-33.4); MEAN CORPUSCULAR HGB CONC 32.3 g/dL (32.0-36.0); MEAN CORPUSCULAR VOLUME 85 fl (80-97); MONOCYTES % (AUTO) 10.7 % (3-13); PLATELET COUNT 312 10^3/uL (150-450); RED BLOOD COUNT 4.67 10^6/uL (3.72-5.28); RED CELL DISTRIBUTION WIDTH 16.4 % (11.5-14.0); SEGMENTED NEUTROPHILS % (AUTO) 50.1 % (42-78); TOTAL CELLS COUNTED % (AUTO) 100 %; WHITE BLOOD COUNT 6.2 10^3/uL (4.0-10.5)
[2020-02-15 01:11] LABS: A TYPE INFLUENZA AG NEGATIVE (NEGATIVE); B INFLUENZA AG NEGATIVE (NEGATIVE)
[2020-02-15 01:32] LABS: ALKALINE PHOSPHATASE 61 U/L (38-126); ANION GAP 7 (5-19); ASPARTATE AMINO TRANSFERASE 23 U/L (14-36); BILIRUBIN,DIRECT 0.3 mg/dL (0.0-0.4); BILIRUBIN,TOTAL 0.4 mg/dL (0.2-1.3); BLOOD UREA NITROGEN 14 mg/dL (7-20); CALCIUM 9.1 mg/dL (8.4-10.2); CARBON DIOXIDE 26 mmol/L (22-30); CHLORIDE 107 mmol/L (98-107); POTASSIUM 3.7 mmol/L (3.6-5.0); TOTAL PROTEIN 6.6 g/dL (6.3-8.2)
[2020-02-15 01:39] LABS: GLUCOSE 68 mg/dL (75-110)
--- NOTE | 2020-02-15 01:53 | RADIOLOGY REPORT (SQ) ---
EXAM DESCRIPTION: XR CHEST 1 VIEW COMPLETED DATE/TME: 02/14/2020 23:45 CLINICAL INDICATION: 29-year-old female with extreme shortness of breath and congestion. TECHNIQUE: Single view, AP portable chest was obtained. COMPARISON: 11/14/2018. FINDINGS: Unremarkable cardiac and mediastinal silhouette. Heart size is normal. Lungs are clear without focal opacity, pneumothorax or pleural effusions. The visualized bones are within normal limits. IMPRESSION: No acute cardiopulmonary abnormalities.
[2020-02-15 03:42] LABS: APPEARANCE,URINE CLEAR; BILIRUBIN,URINE NEGATIVE (NEGATIVE); COLOR,URINE YELLOW; GLUCOSE, URINE NEGATIVE (NEGATIVE); KETONES,URINE NEGATIVE (NEGATIVE); LEUKOCYTE ESTERASE,URINE TRACE (NEGATIVE); NITRITE,URINE NEGATIVE (NEGATIVE); PROTEIN,URINE NEGATIVE (NEGATIVE); URINE SPECIFIC GRAVITY 1.024
[2020-02-15] MEDS ORDERED: BENZONATATE 100 MG CAPSULE PO ONE (04:05)
[2020-02-15 05:11] VITALS: BP 117/81
--- NOTE | 2020-02-15 09:40 | EKG REPORT ---
SEVERITY:- NORMAL ECG - SINUS RHYTHM : Confirmed by: Josh Renee MD 15-Feb-2020 09:38:50
== END 2020-02-15 05:15 | disposition home or self-care (01) ==
LOC: ER 23:06
DX: R06.02 Shortness of breath (principal); R50.9 Fever, unspecified; R05 Cough; R51 Headache; R19.7 Diarrhea, unspecified; Z20.828 Contact with and (suspected) exposure to other viral communicable diseases; I10 Essential (primary) hypertension; Z91.040 Latex allergy status
CPT/HCPCS: 93005; 94640; 99285; 96374; 36415; 87040; 82962; 84703; 85025; 87635; 80053; 81001; 87804; 71045; 93010; J3490; J1100; C9803

== ENCOUNTER 2020-02-16 12:18 | Inpatient (IN) | payer SELFPAY ==
[2020-02-16] MEDS ORDERED: IPRATROPIUM/ALBUTEROL 0.5-2.5 MG/3 ML AMPUL NEB ONE ×3 (12:28→14:25)
[2020-02-16] MEDS: ALBUTEROL SULFATE 0.083% NEB 2.5 MG/3 ML AMPUL NEB SCH ×2 (12:33→12:38)
[2020-02-16] MEDS: PREDNISONE 20 MG TABLET PO ONE ×2 (12:33→13:03)
[2020-02-16] MEDS ORDERED: MAGNESIUM SULFATE/D5W 1 GM/100 ML RTUPB IV ONE (12:42)
[2020-02-16] MEDS ORDERED: DEXAMETHASONE SOD PHOS INJ 10 MG/1 ML VIAL IV ONE (12:42)
[2020-02-16] MEDS ORDERED: NORMAL SALINE 1000 ML 1,000 ML IV ONE (12:43)
--- NOTE | 2020-02-16 12:46 | EKG REPORT ---
SEVERITY:- BORDERLINE ECG - SINUS RHYTHM BORDERLINE T ABNORMALITIES, INFERIOR LEADS : Confirmed by: Josh Renee MD 16-Feb-2020 12:45:36
--- NOTE | 2020-02-16 12:56 | ER Document Report ---
ED General - General Chief Complaint: Shortness Of Breath Stated Complaint: BREATHING PROBLEMS Time Seen by Provider: 02/16/20 12:39 TRAVEL OUTSIDE OF THE [place] IN LAST 30 DAYS: No - HPI Notes: Chief complaint: Respiratory distress History of present illness: 29-year-old female cigarette smoker with past history of asthma was seen here 24 hours ago by another provider for what was felt to possibly be early COVID-19 infection. Patient had some scattered faint wheezes at that time with a clear chest x-ray and normal oxygenation as well as unremarkable labs. A COVID test was performed on nasal swab but the results remain pending at this time. Patient has no known exposure to COVID and no travel outside the area. She was discharged yesterday with albuterol metered- dose inhaler for as needed use along with Tessalon Perles and Robitussin. She notes that she awakened this morning and was nauseated and vomited several times bringing up "a couple of blood clots". She has no prior history of GI bleeding. Her breathing has become much worse today and she was breathless when transported here by EMS. She was tachypneic but initially had saturation of 100% on 2 L nasal O2. She is very anxious nursing staff noted that she desaturated down into the 80s. They put her at 4 L and she came up to 100% but is still hyperventilating. She takes no regular medications. She is allergic to hydromorphone. Last menses normal 1 week ago. - Related Data Allergies/Adverse Reactions: hydromorphone [From Dilaudid] Allergy (Verified 02/16/20 13:26) latex Allergy (Verified 02/16/20 13:26) swelling, itching Past Medical History - General Information source: Patient, [facility] Records - Social History Smoking Status: Current Every Day Smoker Frequency of alcohol use: Social Drug Abuse: None Family History: Reviewed & Not Pertinent - Past Medical History Cardiac Medical History: Reports: Hx Hypertension - not currently Denies: Hx Pulmonary Embolism, Hx Heart Murmur Pulmonary Medical History: Reports: Hx Asthma, Other - Multiple hospitalizations in childhood for asthma. Condition has improved Denies: Hx Sleep Apnea, Hx Tuberculosis Neurological Medical History: Denies: Hx Cerebrovascular Accident Endocrine Medical History: Denies: Hx Diabetes Mellitus Type 1, Hx Diabetes Mellitus Type 2, Hx Hyperthyroidism, Hx Hypothyroidism Renal/ Medical History: Denies: Hx Kidney Stones, Hx Ovarian Cysts, Hx Peritoneal Dialysis, Hx Pelvic Inflammatory Disease Malignancy Medical History: Denies: Hx Breast Cancer, Hx Cervical Cancer, Hx Ovarian Cancer GI Medical History: Denies: Hx Gastroesophageal Reflux Disease, Hx Hiatal Luis ia, Hx Ulcer Musculoskeletal Medical History: Denies Hx Fibromyalgia Psychiatric Medical History: Reports: Hx Bipolar Disorder, Hx Depression Denies: Hx Post Traumatic Stress Disorder, Hx Schizophrenia Traumatic Medical History: Denies: Hx Fractures Infectious Medical History: Denies: Hx HIV Past Surgical History: Reports: Hx Section - x4, Hx Kidney (Renal Surgery), Hx Tubal Ligation - Immunizations Immunizations up to date: Yes Hx Diphtheria, Pertussis, Tetanus Vaccination: Yes Hx Pneumococcal Vaccination: 03/08/13 Review of Systems - Review of Systems Notes: Constitutional: Negative for fever. HENT: Negative for sore throat. Eyes: Negative for visual changes. Cardiovascular: Negative for chest pain. Respiratory: As per HPI. Gastrointestinal: As per HPI. Genitourinary: Negative for dysuria. Musculoskeletal: Negative for back pain. Skin: Negative for rash. Neurological: Negative for headaches, focal weakness or numbness. 10 point ROS negative except as marked above and in HPI. Physical Exam - Vital signs Vitals: Pulse Ox 100 02/16/20 12:16 - Notes Notes: GENERAL: Slender female of approximately stated age who is hyperventilating and extremely anxious. SKIN: Good turgor no rashes. HEAD: Normocephalic atraumatic. EYES: PERRLA. EOMI. Conjunctivae and sclerae clear. EARS: CANALS AND TMS CLEAR. NOSE: CLEAR. MOUTH: Moist mucosa. Good dentition. No stridor or edema. No drooling. NECK: Supple. No masses or thyromegaly. No adenopathy. Carotids 2+ without bruits. No JVD. BACK: Symmetrical without tenderness. CHEST: Tachypnea. Moderate use of accessory muscles. Diffuse end expiratory wheezes with poor air movement. HEART: Tachycardic. Regular rhythm. No murmur gallop or rub. ABDOMEN: Soft nontender without masses, organomegaly or rebound. Bowel sounds normally active. No bruits. GENITALIA: Deferred. EXTREMITIES: No edema. No calf tenderness. Cap refill less than 1.5 seconds. Dorsalis pedis and posterior tibial pulses 3+ and symmetrical. NEUROLOGICAL: GCS 15. Alert and oriented x3. Normal gait. Fluent speech. Cranial nerves II through XII intact. Sensorimotor and cerebellar normal. Normal tone. PSYCHIATRIC: Shows affect. Course - Vital Signs Vital signs: Temp Pulse Resp BP Pulse Ox 98.7 F 92 17 95/65 L 100 02/20/20 11:34 02/20/20 11:34 02/20/20 11:34 02/20/20 11:34 02/20/20 11:34 - Laboratory Result Diagrams: 02/19/20 04:13 02/17/20 05:05 Laboratory results interpreted by me: 02/16/20 02/16/20 02/16/20 12:24 13:16 14:41 WBC Hgb 11.8 L Hct 35.6 L RDW 16.3 H Lymph % (Auto) [place] % (Auto) Seg Neutrophils % ABG pO2 171.4 H ABG HCO3 24.7 H ABG Total CO2 25.9 H ABG O2 Saturation 99.2 H Glucose Lactic Acid 2.4 H Leukocyte Esterase Rfl 02/16/20 02/16/20 02/16/20 15:48 18:03 18:20 WBC Hgb 11.1 L Hct 34.2 L RDW 16.3 H Lymph % (Auto) 6.1 L [place] % (Auto) 0.9 L Seg Neutrophils % 92.9 H ABG pO2 ABG HCO3 ABG Total CO2 ABG O2 Saturation Glucose Lactic Acid 4.3 H Leukocyte Esterase Rfl SMALL H 02/16/20 02/17/20 02/17/20 20:42 05:05 05:05 WBC 10.6 H Hgb 10.7 L Hct 33.0 L RDW 16.4 H Lymph % (Auto) [place] % (Auto) Seg Neutrophils % ABG pO2 ABG HCO3 ABG Total CO2 ABG O2 Saturation Glucose 125 H Lactic Acid 4.8 H Leukocyte Esterase Rfl - EKG Interpretation by Me Additional EKG results interpreted by me: 02/16/20 12:57 Twelve-lead EKG reviewed by me contemporaneously: 1234 hrs. Indication for study: Respiratory distress Rhythm: Normal sinus Rate: 94 Intervals: Normal QRS axis: +[address]/T wave changes: Nonspecific Comparison with prior tracing: None nonspecific Interpretation: T wave changes. Discharge - Discharge Clinical Impression: Asthma exacerbation Condition: Good Disposition: HOME, SELF-CARE
[2020-02-16 13:00] LABS: ABSOLUTE EOSINOPHILS # (AUTO) 0.1 10^3/uL (0.0-0.6); ABSOLUTE LYMPHOCYTES (AUTO) 2.9 10^3/uL (0.5-4.7); ABSOLUTE MONOCYTES (AUTO) 0.5 10^3/uL (0.1-1.4); ABSOLUTE NEUT (AUTO) 4.6 10^3/uL (1.7-8.2); BASOPHILS % (AUTO) 0.2 % (0-2); EOSINOPHILS % (AUTO) 0.8 % (0-6); HEMATOCRIT 35.6 % (36.0-47.0); HEMOGLOBIN 11.8 g/dL (12.0-15.5); LYMPHOCYTES % (AUTO) 36.2 % (13-45); MEAN CORPUSCULAR HEMOGLOBIN 27.7 pg (27.0-33.4); MEAN CORPUSCULAR HGB CONC 33.2 g/dL (32.0-36.0); MEAN CORPUSCULAR VOLUME 84 fl (80-97); MONOCYTES % (AUTO) 6.4 % (3-13); PLATELET COUNT 307 10^3/uL (150-450); PROTHROMBIN TIME 13.4 SEC (11.4-15.4); RED BLOOD COUNT 4.26 10^6/uL (3.72-5.28); RED CELL DISTRIBUTION WIDTH 16.3 % (11.5-14.0); SEGMENTED NEUTROPHILS % (AUTO) 56.4 % (42-78); TOTAL CELLS COUNTED % (AUTO) 100 %; WHITE BLOOD COUNT 8.1 10^3/uL (4.0-10.5)
--- NOTE | 2020-02-16 13:01 | RADIOLOGY REPORT (SQ) ---
EXAM DESCRIPTION: CHEST SINGLE VIEW IMAGES COMPLETED DATE/TIME: 02/16/2020 12:48 pm REASON FOR STUDY: SOB COMPARISON: 02/15/2020 EXAM PARAMETERS: NUMBER OF VIEWS: One view. TECHNIQUE: Single frontal radiographic view of the chest acquired. RADIATION DOSE: NA LIMITATIONS: None. FINDINGS: LUNGS AND PLEURA: No opacities, masses or pneumothorax. No pleural effusion. MEDIASTINUM AND HILAR STRUCTURES: No masses. Contour normal. HEART AND VASCULAR STRUCTURES: Heart normal in size. Normal vasculature. BONES: No acute findings. HARDWARE: None in the chest. OTHER: No other significant finding. IMPRESSION: NO ACUTE RADIOGRAPHIC FINDING IN THE CHEST. TECHNICAL DOCUMENTATION: JOB ID: [id number] 2010 [employer]- All Rights Reserved Reading location - IP/workstation name: [email or web address]
[2020-02-16 13:23] LABS: ALKALINE PHOSPHATASE 51 U/L (38-126); ANION GAP 11 (5-19); ASPARTATE AMINO TRANSFERASE 21 U/L (14-36); BILIRUBIN,DIRECT 0.2 mg/dL (0.0-0.4); BILIRUBIN,TOTAL 0.4 mg/dL (0.2-1.3); BLOOD UREA NITROGEN 12 mg/dL (7-20); CALCIUM 9.5 mg/dL (8.4-10.2); CARBON DIOXIDE 22 mmol/L (22-30); CHLORIDE 105 mmol/L (98-107); GLUCOSE 102 mg/dL (75-110); POTASSIUM 3.8 mmol/L (3.6-5.0); TOTAL PROTEIN 6.7 g/dL (6.3-8.2)
[2020-02-16 13:38] LABS: ARTERIAL BLOOD BASE EXCESS 0.1 mmol/L; ARTERIAL BLOOD FIO2 4L; ARTERIAL BLOOD HCO3 24.7 mmol/L (20-24); ARTERIAL BLOOD O2 SATURATION 99.2 % (94-98); ARTERIAL BLOOD PH 7.41 (7.35-7.45); ARTERIAL BLOOD PO2 171.4 mmHg (80-100); ARTERIAL BLOOD TOTAL CO2 25.9 mmol/L (21-25)
[2020-02-16] MEDS ORDERED: PANTOPRAZOLE SODIUM 40 MG VIAL IV ONE (13:45)
[2020-02-16] MEDS ORDERED: ONDANSETRON HCL INJ/PF 4 MG/2 ML SDV IV ONE (13:46)
[2020-02-16] MEDS ORDERED: LORAZEPAM 1 MG TABLET PO ONE (14:25)
[2020-02-16 16:19] LABS: AMORPHOUS SEDIMENT,URINE TRACE /HPF; APPEARANCE,URINE CLOUDY; BILIRUBIN,URINE NEGATIVE (NEGATIVE); COLOR,URINE YELLOW; GLUCOSE, URINE NEGATIVE (NEGATIVE); KETONES,URINE NEGATIVE (NEGATIVE); PROTEIN,URINE NEGATIVE (NEGATIVE); URINE SPECIFIC GRAVITY 1.025; UROBILINOGEN,URINE NEGATIVE mg/dL (<2.0)
[2020-02-16 18:31] LABS: ABSOLUTE LYMPHOCYTES (AUTO) 0.5 10^3/uL (0.5-4.7); ABSOLUTE MONOCYTES (AUTO) 0.1 10^3/uL (0.1-1.4); ABSOLUTE NEUT (AUTO) 7.7 10^3/uL (1.7-8.2); BASOPHILS % (AUTO) 0.1 % (0-2); HEMATOCRIT 34.2 % (36.0-47.0); HEMOGLOBIN 11.1 g/dL (12.0-15.5); LYMPHOCYTES % (AUTO) 6.1 % (13-45); MEAN CORPUSCULAR HEMOGLOBIN 27.6 pg (27.0-33.4); MEAN CORPUSCULAR HGB CONC 32.6 g/dL (32.0-36.0); MEAN CORPUSCULAR VOLUME 85 fl (80-97); MONOCYTES % (AUTO) 0.9 % (3-13); PLATELET COUNT 297 10^3/uL (150-450); RED BLOOD COUNT 4.03 10^6/uL (3.72-5.28); RED CELL DISTRIBUTION WIDTH 16.3 % (11.5-14.0); SEGMENTED NEUTROPHILS % (AUTO) 92.9 % (42-78); TOTAL CELLS COUNTED % (AUTO) 100 %; WHITE BLOOD COUNT 8.3 10^3/uL (4.0-10.5)
[2020-02-16] MEDS ORDERED: ACETAMINOPHEN 650 MG SUPP.RECT PR PRN (21:08)
[2020-02-16] MEDS ORDERED: IPRATROPIUM/ALBUTEROL 0.5-2.5 MG/3 ML AMPUL NEB SCH (21:15)
[2020-02-16] MEDS: RINGERS SOLUTION,LACTATED 1,000 ML IV PRN (21:41)
[2020-02-16] MEDS: HEPARIN SOD (PORCINE) 5,000 UNIT/ML 1 ML VIAL SUBCUT SCH (21:41)
--- NOTE | 2020-02-16 23:06 | PDOC H&P ---
History of Present Illness Admission Date/PCP: 02/16/20 21:33 Patient complains of: Shortness of breath. hematemesis History of Present Illness: LEA EMERSON is a 29 year old female, PMH of Asthma, no prior history of intubation, no recent exacerbation who came in due to SOB and hematemesis. 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 CXR was done which was negative, COVID test negative.She was given cough syrup and was discharged at home. She continued to be have SOB at home with frequent albuterol use which did not provide relief. Few hours [employer]SEM[employer] MACHINE [employer]ER, she also had 3 episodes of minimal blood streaked vomiting. Denies any abdominal pain, no melena. In the ED, she was given IV steroids, Mg sulfate and nebulizations. LActic acid noted to be 2.1>4.3. She was then admitted for further evaluation and management. She uses albuterol as a rescue inhaler and her asthma is controlled with no daily or nocturnal symptoms. Past Medical History Cardiac Medical History: Denies: Pulmonary Embolism, Heart Murmur Pulmonary Medical History: Reports: Asthma, Other - Multiple hospitalizations in childhood for asthma. Condition has improved Denies: Sleep Apnea, Tuberculosis EENT Medical History: Reports: None Neurological Medical History: Reports: None Endocrine Medical History: Reports: None Denies: Diabetes Mellitus Type 1, Diabetes Mellitus Type 2, Hyperthyroidism, Hypothyroidism Renal/ Medical History: Reports: None Malignancy Medical History: Reports: None Denies: Breast Cancer, Cervical Cancer, Ovarian Cancer GI Medical History: Reports: None Denies: Gastroesophageal Reflux Disease, Hiatal Hernia Musculoskeltal Medical History: Denies: Fibromyalgia Psychiatric Medical History: Denies: Post Traumatic Stress Disorder Traumatic Medical History: Reports: None Hematology: Denies: Anemia, Hemophilia, Sickle Cell Disease Infectious Medical History: Denies: HIV Past Surgical History Past Surgical History: Reports: Section - x4, Tubal Ligation Social History Information Source: Patient Lives with: Family Smoking Status: Current Every Day Smoker Cigarettes Packs Per Day: 5 Number of Years Smokin Drugs: None Hx Prescription Drug Abuse: No Family History Family History: None, Other - astham mom and dad Parental Family History Reviewed: Yes Children Family History Reviewed: Yes Sibling(s) Family History Reviewed.: Yes Medication/Allergy Home Medications: Cephalexin Monohydrate [Keflex 500 mg Capsule] 500 mg PO QID #20 capsule 11/07/16 Ibuprofen [Motrin 800 mg Tablet] 800 mg PO Q8H PRN #30 tab 11/07/16 Hydrocodone/Acetaminophen [Worth 5-325 mg Tablet] 1 tab PO Q4 PRN #8 tablet 07/27/17 Ondansetron [Zofran Odt 4 mg Tablet] 1 - 2 tab PO Q4H PRN #15 tab.rapdis 09/30/17 Hydrocodone/Acetaminophen [Lorcet 5-325 mg Tablet] 1 each PO Q6H PRN #10 tablet 08/16/18 Methocarbamol [Robaxin 500 mg Tablet] 500 mg PO QID #20 tablet 08/16/18 Cephalexin [Cephalexin 500 MG Tablet] 1 tab PO QID #28 tablet 10/02/18 Amoxicillin 1 tab PO TID #30 tab 04/30/19 Ibuprofen [Motrin 800 mg Tablet] 800 mg PO Q8H PRN #30 tab 04/30/19 Lidocaine HCl [Xylocaine 2% Viscous Soln 15 ml Udcup] 15 ml PO TID #1 bottle 04/30/19 Oxycodone HCl/Acetaminophen [Percocet 5-325 mg Tablet] 1 tab PO Q6H PRN #6 tablet 04/30/19 Methocarbamol [Robaxin 500 Mg Tablet] 500 mg PO QID PRN #20 tablet 05/20/19 Naproxen [Naprosyn 250 Nmg Tablet] 1 tab PO BID #14 tablet 05/20/19 Ibuprofen [Ibu] 800 mg PO TID PRN #30 tablet 07/15/19 Lidocaine HCl [Xylocaine 2% Viscous Soln 15 ml Udcup] 15 ml PO TID PRN #1 udc 07/15/19 Penicillin V Potassium [Penicillin Vk 500 mg Tablet] 500 mg PO BID #20 tablet 07/15/19 Ibuprofen [Motrin 800 mg Tablet] 800 mg PO Q8H PRN #15 tab 07/30/19 Penicillin V Potassium [Penicillin Vk 250 mg Tablet] 500 mg PO BID #40 tablet 07/30/19 Albuterol Sulfate [Proair HFA Inhalation Aerosol 8.5 gm MDI] 2 puff IH Q4H PRN #1 mdi 02/15/20 Benzonatate [Tessalon Perles 100 mg Capsule] 100 mg PO Q8HP PRN #40 capsule 02/15/20 Guaifenesin/Codeine Phos [Robitussin-AC Syrup 59 ml] 10 ml PO QIDP PRN #200 ml 02/15/20 Allergies/Adverse Reactions: hydromorphone [From Dilaudid] Allergy (Verified 02/16/20 13:26) latex Allergy (Verified 02/16/20 13:26) swelling, itching Review of Systems Constitutional: PRESENT: fever(s), weakness Nose, Mouth, and Throat: PRESENT: as per HPI Respiratory: PRESENT: cough, other - SOB Gastrointestinal: PRESENT: diarrhea Genitourinary: PRESENT: dysuria, nocturia Musculoskeletal: PRESENT: muscle weakness Integumentary: PRESENT: lesions Neurological: PRESENT: abnormal movements, focal weakness Endocrine: PRESENT: heat intolerance Hematologic/Lymphatic: PRESENT: easy bruising Physical Exam Vital Signs: Temp Pulse Resp BP Pulse Ox 98.5 F 112 H 19 117/67 100 02/16/20 22:47 02/16/20 12:49 02/16/20 22:01 02/16/20 22:00 02/16/20 22:01 Intake & Output 02/15/20 02/16/20 02/17/20 06:59 06:59 06:59 Intake Total 1120 Balance 1120 Weight 68.039 kg General appearance: PRESENT: mild distress Head exam: PRESENT: atraumatic, normocephalic Eye exam: PRESENT: EOMI Mouth exam: PRESENT: moist Throat exam: PRESENT: tonsillar exudate Neck exam: PRESENT: full ROM. ABSENT: JVD Respiratory exam: PRESENT: stridor, wheezes, other Cardiovascular exam: PRESENT: RRR, +S1, +S2 Pulses: PRESENT: normal radial pulses GI/Abdominal exam: PRESENT: normal bowel sounds, soft. ABSENT: guarding, rebound Extremities exam: PRESENT: full ROM Musculoskeletal exam: PRESENT: full ROM Neurological exam: PRESENT: alert, awake, oriented to person, oriented to place, oriented to time Psychiatric exam: PRESENT: normal mood Skin exam: PRESENT: normal color Results Laboratory Results: 02/16/20 18:20 02/16/20 12:24 02/16/20 02/16/20 02/16/20 12:24 12:24 13:16 WBC 8.1 RBC 4.26 Hgb 11.8 L Hct 35.6 L MCV 84 MCH 27.7 MCHC 33.2 RDW 16.3 H Plt Count 307 Seg Neutrophils % 56.4 Carbonic Acid 1.20 HCO3/H2CO3 Ratio 20:1 ABG pH 7.41 ABG pCO2 40.0 ABG pO2 171.4 H ABG HCO3 24.7 H ABG O2 Saturation 99.2 H ABG Base Excess 0.1 FiO2 4L Sodium 138.3 Potassium 3.8 Chloride 105 Carbon Dioxide 22 Anion Gap 11 BUN 12 Creatinine 0.74 Est GFR ( Amer) > 60 Glucose 102 Lactic Acid Calcium 9.5 Total Bilirubin 0.4 AST 21 Alkaline Phosphatase 51 Total Protein 6.7 Albumin 4.0 Urine Color Urine Appearance Urine pH Ur Specific [place] Urine Protein Urine Glucose (UA) Urine Ketones Urine Blood Urine RBC (Auto) 02/16/20 02/16/20 02/16/20 14:41 15:48 18:03 WBC RBC Hgb Hct MCV MCH MCHC RDW Plt Count Seg Neutrophils % Carbonic Acid HCO3/H2CO3 Ratio ABG pH ABG pCO2 ABG pO2 ABG HCO3 ABG O2 Saturation ABG Base Excess FiO2 Sodium Potassium Chloride Carbon Dioxide Anion Gap BUN Creatinine Est GFR ( Amer) Glucose Lactic Acid 2.4 H 4.3 H Calcium Total Bilirubin AST Alkaline Phosphatase Total Protein Albumin Urine Color YELLOW Urine Appearance CLOUDY Urine pH 6.0 Ur Specific [place] 1.025 Urine Protein NEGATIVE Urine Glucose (UA) NEGATIVE Urine Ketones NEGATIVE Urine Blood NEGATIVE Urine RBC (Auto) 2 02/16/20 02/16/20 18:20 20:42 WBC 8.3 RBC 4.03 Hgb 11.1 L Hct 34.2 L MCV 85 MCH 27.6 MCHC 32.6 RDW 16.3 H Plt Count 297 Seg Neutrophils % 92.9 H Carbonic Acid HCO3/H2CO3 Ratio ABG pH ABG pCO2 ABG pO2 ABG HCO3 ABG O2 Saturation ABG Base Excess FiO2 Sodium Potassium Chloride Carbon Dioxide Anion Gap BUN Creatinine Est GFR ( Amer) Glucose Lactic Acid 4.8 H Calcium Total Bilirubin AST Alkaline Phosphatase Total Protein Albumin Urine Color Urine Appearance Urine pH Ur Specific [place] Urine Protein Urine Glucose (UA) Urine Ketones Urine Blood Urine RBC (Auto) 02/16/20 12:24 Troponin I < 0.012 Impressions: Chest X-Ray 02/16/20 12:28 IMPRESSION: NO ACUTE RADIOGRAPHIC FINDING IN THE CHEST. Assessment and Plan - Diagnosis (1) Exacerbation of asthma Qualifiers: Asthma severity: moderate Is this a current diagnosis for this admission?: Yes Plan: - came in with SOB, fever, cough, 4 days duration - known asthmatic on albuterol - no prior intubation for asthma - +ve wheezing, +ve stridor? - COVID negative - CXR no acute process - received solumedrol, Mg, nebs in the ED - continue duoneb round the clock - started on LABA/ICS - solumedrol IV - O2 support as needed (2) Bronchial asthma Qualifiers: Asthma severity: mild Asthma persistence: intermittent Asthma complication type: with acute exacerbation Qualified Code(s): J45.21 - Mild intermittent asthma with (acute) exacerbation Is this a current diagnosis for this admission?: Yes Plan: - known asthmatic on PRN albuterol - asthma good control prior to current admission - no prior intubation or ICU admission - continue duoneb - start LABA and ICS on top of rescure - advised smoking cessation (3) Tobacco use Is this a current diagnosis for this admission?: Yes Plan: - smokes 5 cig/day for 10 years - known asthmatic - counseling for smoking cessation (4) Lactic acid acidosis Is this a current diagnosis for this admission?: Yes Plan: - Lactic acid 2.1>4.3 - WBC count 8 - CXR normal - no other sign of sepsis, afebrile - lactic acid likely 2/2 to neb treatments - will repeat and monitor - no indication for abx for now (5) Hematemesis of unknown cause Is this a current diagnosis for this admission?: Yes Plan: - minimal - VS stable, Hgb 11.1 - maybe ammon sheldon - will give protonix - monitor for recurrence - Time Time Spent with patient: 35 or more minutes Smoking Cessation Education: 3 to 10 minutes Medications reviewed and adjusted accordingly: Yes Anticipated Discharge Disposition: Home, Self Care Anticipated Discharge Timeframe: within 48 hours
[2020-02-17] MEDS: ACETAMINOPHEN 325 MG TABLET PO PRN ×2 (00:34→10:08)
[2020-02-17] MEDS: IPRATROPIUM/ALBUTEROL 0.5-2.5 MG/3 ML AMPUL NEB SCH ×6 (00:39→23:55)
[2020-02-17 05:29] LABS: HEMOGLOBIN 10.7 g/dL (12.0-15.5); MEAN CORPUSCULAR HEMOGLOBIN 27.5 pg (27.0-33.4); MEAN CORPUSCULAR HGB CONC 32.6 g/dL (32.0-36.0); MEAN CORPUSCULAR VOLUME 85 fl (80-97); PLATELET COUNT 279 10^3/uL (150-450); RED CELL DISTRIBUTION WIDTH 16.4 % (11.5-14.0); WHITE BLOOD COUNT 10.6 10^3/uL (4.0-10.5)
[2020-02-17 05:49] LABS: ANION GAP 8 (5-19); BLOOD UREA NITROGEN 10 mg/dL (7-20); CALCIUM 8.9 mg/dL (8.4-10.2); CARBON DIOXIDE 23 mmol/L (22-30); CHLORIDE 107 mmol/L (98-107); GLUCOSE 125 mg/dL (75-110); POTASSIUM 4.5 mmol/L (3.6-5.0)
[2020-02-17] MEDS: PANTOPRAZOLE SODIUM 20 MG TABLET.DR PO SCH (06:14)
[2020-02-17] MEDS: HEPARIN SOD (PORCINE) 5,000 UNIT/ML 1 ML VIAL SUBCUT SCH ×3 (06:14→21:22)
[2020-02-17] MEDS ORDERED: METHYLPREDNISOLONE INJ 40 MG/1 ML SDV IV SCH (10:00)
[2020-02-17] MEDS: RINGERS SOLUTION,LACTATED 1,000 ML IV PRN (10:07)
[2020-02-17] MEDS: FLUTICASONE/VILANTEROL 100-25 MCG/DOSE IH SCH (11:12)
--- NOTE | 2020-02-17 16:49 | PDOC PROGRESS REPORT ---
Subjective Progress Note for:: 02/17/20 Subjective:: Breathing better Reason For Visit: BRONCHIAL ASTHMA IN ACUTE EXACERBATION Physical Exam Vital Signs: Temp Pulse Resp BP Pulse Ox 97.1 F 88 14 113/50 L 100 02/17/20 14:57 02/17/20 16:08 02/17/20 16:08 02/17/20 14:57 02/17/20 16:08 Intake & Output 02/16/20 02/17/20 02/18/20 06:59 06:59 06:59 Intake Total 1240 1000 Output Total 500 Balance 740 1000 Weight 71.5 kg General appearance: PRESENT: no acute distress, well-developed, well-nourished Head exam: PRESENT: atraumatic, normocephalic Eye exam: PRESENT: conjunctiva pink, EOMI, PERRLA. ABSENT: scleral icterus Ear exam: PRESENT: normal external ear exam Mouth exam: PRESENT: moist, tongue midline Neck exam: ABSENT: carotid bruit, JVD, lymphadenopathy, thyromegaly Respiratory exam: PRESENT: clear to auscultation jesus, unlabored, wheezes - minimal scattered wheezing. ABSENT: rales, rhonchi Cardiovascular exam: PRESENT: RRR, +S1, +S2. ABSENT: diastolic murmur, rubs, s ystolic murmur Pulses: PRESENT: normal dorsalis pedis pul Vascular exam: PRESENT: normal capillary refill GI/Abdominal exam: PRESENT: normal bowel sounds, soft. ABSENT: distended, guarding, mass, organolmegaly, rebound, tenderness Rectal exam: PRESENT: deferred Extremities exam: PRESENT: full ROM. ABSENT: calf tenderness, clubbing, pedal edema Neurological exam: PRESENT: alert, awake, oriented to person, oriented to place, oriented to time, oriented to situation, CN II-XII grossly intact. ABSENT: motor sensory deficit Psychiatric exam: PRESENT: appropriate affect, normal mood. ABSENT: homicidal ideation, suicidal ideation Skin exam: PRESENT: dry, intact, warm. ABSENT: cyanosis, rash Results Laboratory Results: 02/17/20 05:05 02/17/20 05:05 02/16/20 02/16/20 02/16/20 18:03 18:20 20:42 WBC 8.3 RBC 4.03 Hgb 11.1 L Hct 34.2 L MCV 85 MCH 27.6 MCHC 32.6 RDW 16.3 H Plt Count 297 Seg Neutrophils % 92.9 H Sodium Potassium Chloride Carbon Dioxide Anion Gap BUN Creatinine Est GFR ( Amer) Glucose Lactic Acid 4.3 H 4.8 H Calcium 02/17/20 02/17/20 05:05 05:05 WBC 10.6 H RBC 3.90 Hgb 10.7 L Hct 33.0 L MCV 85 MCH 27.5 MCHC 32.6 RDW 16.4 H Plt Count 279 Seg Neutrophils % Sodium 138.4 Potassium 4.5 Chloride 107 Carbon Dioxide 23 Anion Gap 8 BUN 10 Creatinine 0.67 Est GFR ( Amer) > 60 Glucose 125 H Lactic Acid Calcium 8.9 02/16/20 12:24 Troponin I < 0.012 Impressions: Chest X-Ray 02/16/20 12:28 IMPRESSION: NO ACUTE RADIOGRAPHIC FINDING IN THE CHEST. Assessment and Plan - Diagnosis (1) Exacerbation of asthma Qualifiers: Asthma severity: moderate Is this a current diagnosis for this admission?: Yes Plan: -Continue with steroids as well as DuoNeb and adjust dose. Patient has minimal wheezing at this time. (2) Tobacco use Is this a current diagnosis for this admission?: Yes Plan: - smokes 5 cig/day for 10 years - known asthmatic - counseling for smoking cessation (3) Hematemesis of unknown cause Is this a current diagnosis for this admission?: Yes Plan: Possibly Zahraa-Hughes tear. Vital signs remained stable and hemoglobin relatively stable at 10.7. We will continue to monitor (4) Lactic acid acidosis Is this a current diagnosis for this admission?: Yes Plan: -No evidence of sepsis and elevated level likely secondary to asthma exacerbation Recheck in a.m. - Time Time Spent with patient: 15-24 minutes Anticipated Discharge Disposition: Home, Self Care Anticipated Discharge Timeframe: within 24 hours
[2020-02-17] MEDS ORDERED: IPRATROPIUM/ALBUTEROL 0.5-2.5 MG/3 ML AMPUL NEB PRN (16:50)
[2020-02-18] MEDS: HEPARIN SOD (PORCINE) 5,000 UNIT/ML 1 ML VIAL SUBCUT SCH ×3 (06:46→22:21)
[2020-02-18] MEDS: PANTOPRAZOLE SODIUM 20 MG TABLET.DR PO SCH (06:46)
[2020-02-18] MEDS: ACETAMINOPHEN 325 MG TABLET PO PRN (07:49)
[2020-02-18] MEDS: IPRATROPIUM/ALBUTEROL 0.5-2.5 MG/3 ML AMPUL NEB SCH ×2 (08:00→16:14)
[2020-02-18] MEDS: FLUTICASONE/VILANTEROL 100-25 MCG/DOSE IH SCH (10:46)
[2020-02-18] MEDS: PREDNISONE 20 MG TABLET PO SCH (10:46)
--- NOTE | 2020-02-18 17:31 | PDOC PROGRESS REPORT ---
Subjective Progress Note for:: 02/18/20 Subjective:: Breathing better Try to ambulate patient today without oxygen so that she could hopefully just be discharged Patient complained of difficulty breathing and apparently placed oxygen back before duration could be checked. She says she does not feel ready to be discha rged Reason For Visit: EXACERBATION OF ASTHMA, BRONCHIAL ASTHMA, LACTIC Physical Exam Vital Signs: Temp Pulse Resp BP Pulse Ox 98.2 F 106 H 18 95/48 L 98 02/18/20 16:08 02/18/20 16:16 02/18/20 16:16 02/18/20 16:08 02/18/20 16:16 Intake & Output 02/17/20 02/18/20 02/19/20 06:59 06:59 06:59 Intake Total 1240 1638 150 Output Total 500 Balance 740 1638 150 Weight 71.5 kg 71.5 kg General appearance: PRESENT: thin Head exam: PRESENT: atraumatic, normocephalic Eye exam: PRESENT: conjunctiva pink, EOMI, PERRLA. ABSENT: scleral icterus Ear exam: PRESENT: normal external ear exam Mouth exam: PRESENT: moist, tongue midline Neck exam: ABSENT: carotid bruit, JVD, lymphadenopathy, thyromegaly Respiratory exam: PRESENT: decreased breath sounds, unlabored. ABSENT: rales, rhonchi, wheezes Cardiovascular exam: PRESENT: RRR, +S1, +S2. ABSENT: diastolic murmur, rubs, systolic murmur Pulses: PRESENT: normal dorsalis pedis pul Vascular exam: PRESENT: normal capillary refill GI/Abdominal exam: PRESENT: normal bowel sounds, soft. ABSENT: distended, guarding, mass, organolmegaly, rebound, tenderness Rectal exam: PRESENT: deferred Extremities exam: PRESENT: full ROM. ABSENT: calf tenderness, clubbing, pedal edema Neurological exam: PRESENT: alert, awake, oriented to person, oriented to place, oriented to time, oriented to situation, CN II-XII grossly intact. ABSENT: motor sensory deficit Psychiatric exam: PRESENT: appropriate affect, normal mood. ABSENT: homicidal ideation, suicidal ideation Skin exam: PRESENT: dry, intact, warm. ABSENT: cyanosis, rash Results Laboratory Results: 02/17/20 05:05 02/17/20 05:05 02/16/20 12:24 Troponin I < 0.012 Impressions: Chest X-Ray 02/16/20 12:28 IMPRESSION: NO ACUTE RADIOGRAPHIC FINDING IN THE CHEST. Assessment and Plan - Diagnosis (1) Exacerbation of asthma Qualifiers: Asthma severity: moderate Is this a current diagnosis for this admission?: Yes Plan: -Continue with steroids as well as DuoNeb and adjust dose. Patient has minimal wheezing at this time. She probably can be discharged home in a.m. Attempt to discharge her today proved futile (2) Tobacco use Is this a current diagnosis for this admission?: Yes (3) Hematemesis of unknown cause Is this a current diagnosis for this admission?: Yes Plan: Possibly Zahraa-Hughes tear. Vital signs remained stable and hemoglobin relatively stable at 10.7. Follow-up H&H in a.m. (4) Lactic acid acidosis Is this a current diagnosis for this admission?: Yes - Time Time Spent with patient: 15-24 minutes Medications reviewed and adjusted accordingly: Yes Anticipated Discharge Disposition: Home, Self Care Anticipated Discharge Timeframe: within 24 hours
[2020-02-19] MEDS: IPRATROPIUM/ALBUTEROL 0.5-2.5 MG/3 ML AMPUL NEB SCH ×3 (00:34→15:48)
[2020-02-19] MEDS: MAGNESIUM HYDROXIDE SUSP 30 ML UDCUP PO PRN (00:41)
[2020-02-19 04:42] LABS: ABSOLUTE EOSINOPHILS # (AUTO) 0.1 10^3/uL (0.0-0.6); BASOPHILS % (AUTO) 0.3 % (0-2); HEMATOCRIT 33.3 % (36.0-47.0); TOTAL CELLS COUNTED % (AUTO) 100 %
[2020-02-19 04:50] LABS: ABSOLUTE LYMPHOCYTES (AUTO) 3.1 10^3/uL (0.5-4.7); ABSOLUTE MONOCYTES (AUTO) 0.8 10^3/uL (0.1-1.4); ABSOLUTE NEUT (AUTO) 7.5 10^3/uL (1.7-8.2); EOSINOPHILS % (AUTO) 0.6 % (0-6); HEMOGLOBIN 10.9 g/dL (12.0-15.5); LYMPHOCYTES % (AUTO) 26.9 % (13-45); MEAN CORPUSCULAR HEMOGLOBIN 27.4 pg (27.0-33.4); MEAN CORPUSCULAR HGB CONC 32.7 g/dL (32.0-36.0); MEAN CORPUSCULAR VOLUME 84 fl (80-97); MONOCYTES % (AUTO) 6.6 % (3-13); PLATELET COUNT 270 10^3/uL (150-450); RED BLOOD COUNT 3.97 10^6/uL (3.72-5.28); RED CELL DISTRIBUTION WIDTH 16.2 % (11.5-14.0); SEGMENTED NEUTROPHILS % (AUTO) 65.6 % (42-78); WHITE BLOOD COUNT 11.4 10^3/uL (4.0-10.5)
[2020-02-19] MEDS: PANTOPRAZOLE SODIUM 20 MG TABLET.DR PO SCH (06:42)
[2020-02-19] MEDS: HEPARIN SOD (PORCINE) 5,000 UNIT/ML 1 ML VIAL SUBCUT SCH ×3 (06:45→22:06)
[2020-02-19] MEDS ORDERED: NORMAL SALINE 1000 ML 1,000 ML IV PRN (08:20)
[2020-02-19] MEDS ORDERED: (PENDING PHARMACY ID) (Albuterol Sulfate 2 PUFF) IH PRN (08:20)
[2020-02-19] MEDS ORDERED: CODEINE PHOS PO PRN (08:20)
[2020-02-19] MEDS ORDERED: GUAIFENESIN PO PRN (08:20)
[2020-02-19] MEDS ORDERED: ALBUTEROL SULFATE HFA (90 MCG/PUFF) 8 GM MDI IH PRN (10:00)
[2020-02-19] MEDS: ACETAMINOPHEN 325 MG TABLET PO PRN ×2 (10:01→19:36)
[2020-02-19] MEDS: PREDNISONE 20 MG TABLET PO SCH (10:01)
[2020-02-19] MEDS: SENNOSIDES/DOCUSATE 8.6-50 MG 1 EACH TABLET PO SCH ×2 (10:01→17:52)
[2020-02-19] MEDS: BENZONATATE 100 MG CAPSULE PO PRN (10:01)
[2020-02-19] MEDS: FLUTICASONE/VILANTEROL 100-25 MCG/DOSE IH SCH (10:02)
--- NOTE | 2020-02-19 11:54 | PDOC PROGRESS REPORT ---
Subjective Progress Note for:: 02/19/20 Subjective:: 29 year old female, PMH of Asthma, no prior history of intubation, no recent exacerbation who came in due to SOB and hematemesis. 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 CXR was done which was negative, COVID test negative.She was given cough syrup and was discharged at home. She continued to be have SOB at home with frequent albuterol use which did not provide relief. 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 Denies any abdominal pain, no melena. In the ED, she was given IV steroids, Mg sulfate and nebulizations. LActic acid noted to be 2.1>4.3. She was then admitted for further evaluation and management. She uses albuterol as a rescue inhaler and her asthma is controlled with no daily or nocturnal symptoms. 02/19/[id number]-old female came to the emergency room with complaints of shortness of breath and hematemesis. She also came in with fever. Call with test is negative. Comfortably in the bed communicating well complaining of abdominal pain and complaining of constipation. Blood pressure this morning is 90/43. Lactic acid is elevated at 4.8. Started on IV fluids normal saline at 75 cc/h. Reason For Visit: EXACERBATION OF ASTHMA, BRONCHIAL ASTHMA, LACTIC Physical Exam Vital Signs: Temp Pulse Resp BP Pulse Ox 97.6 F 84 16 99/51 L 99 02/19/20 10:23 02/19/20 10:23 02/19/20 10:23 02/19/20 10:23 02/19/20 08:01 Intake & Output 02/18/20 02/19/20 02/20/20 06:59 06:59 06:59 Intake Total 1638 810 Output Total 0 Balance 1638 810 Weight 71.5 kg 71.7 kg General appearance: PRESENT: no acute distress, cooperative Head exam: PRESENT: normocephalic Eye exam: PRESENT: PERRLA Mouth exam: PRESENT: moist, tongue midline Teeth exam: PRESENT: poor dentation Neck exam: ABSENT: carotid bruit, JVD, lymphadenopathy, thyromegaly Respiratory exam: PRESENT: decreased breath sounds Cardiovascular exam: PRESENT: RRR. ABSENT: diastolic murmur, rubs, systolic murmur GI/Abdominal exam: PRESENT: normal bowel sounds, soft. ABSENT: distended, guarding, mass, organolmegaly, rebound, tenderness Rectal exam: PRESENT: deferred Neurological exam: PRESENT: alert, awake, oriented to person, oriented to place, oriented to time, oriented to situation, CN II-XII grossly intact. ABSENT: motor sensory deficit Psychiatric exam: PRESENT: appropriate affect, normal mood. ABSENT: homicidal ideation, suicidal ideation Results Laboratory Results: 02/19/20 04:13 02/17/20 05:05 02/19/20 04:13 WBC 11.4 H RBC 3.97 Hgb 10.9 L Hct 33.3 L MCV 84 MCH 27.4 MCHC 32.7 RDW 16.2 H Plt Count 270 Seg Neutrophils % 65.6 02/16/20 12:24 Troponin I < 0.012 Impressions: Chest X-Ray 02/16/20 12:28 IMPRESSION: NO ACUTE RADIOGRAPHIC FINDING IN THE CHEST. Assessment and Plan - Diagnosis (1) Exacerbation of asthma Qualifiers: Asthma severity: moderate Is this a current diagnosis for this admission?: Yes Plan: - - came in with SOB, fever, cough, 4 days duration - known asthmatic on albuterol - no prior intubation for asthma - +ve wheezing, +ve stridor? - COVID negative - CXR no acute process - received solumedrol, Mg, nebs in the ED - continue duoneb round the clock - started on LABA/ICS - solumedrol IV - O2 support as needed Continue with steroids as well as DuoNeb and adjust dose. Patient has minimal wheezing at this time. She probably can be discharged home in a.m. Attempt to discharge her today proved futile 02/19/2020-on examination comfortably in the bed communicating well. Not in shortness of breath. Pulse ox is 100% room air. Chest bilateral entry was good no wheezing no crepitations. Plan is to decrease the dose of prednisone to 20 mg daily. (2) Bronchial asthma Qualifiers: Asthma severity: mild Asthma persistence: intermittent Asthma complication type: with acute exacerbation Qualified Code(s): J45.21 - Mild intermittent asthma with (acute) exacerbation Is this a current diagnosis for this admission?: Yes Plan: - known asthmatic on PRN albuterol - asthma good control prior to current admission - no prior intubation or ICU admission - continue duoneb - start LABA and ICS on top of rescure - advised smoking cessation (3) Tobacco use Is this a current diagnosis for this admission?: No Plan: - smokes 5 cig/day for 10 years - known asthmatic - counseling for smoking cessation (4) Lactic acid acidosis Is this a current diagnosis for this admission?: Yes Plan: - Lactic acid 2.1>4.3 - WBC count 8 - CXR normal - no other sign of sepsis, afebrile - lactic acid likely 2/2 to neb treatments - will repeat and monitor - no indication for abx for now -No evidence of sepsis and elevated level likely secondary to asthma exacerbation Recheck in a.m. 02/19/2020-latest lactic acid level is 4.8. Started on IV fluids normal saline at 75 cc/h. To repeat the lactic acid level tomorrow. (5) Hematemesis of unknown cause Is this a current diagnosis for this admission?: Yes Plan: - minimal - VS stable, Hgb 11.1 - maybe ammon hughes - will give protonix - monitor for recurrence Possibly Ammon-Hughes tear. Vital signs remained stable and hemoglobin relatively stable at 10.7. Follow-up H&H in a.m. 02/19/20-latest hemoglobin is 10.9. Stable. Plan is to closely monitor the labs at this time. - Time Anticipated Discharge Disposition: Home, Self Care Anticipated Discharge Timeframe: within 24 hours
[2020-02-19] MEDS ORDERED: MAGNESIUM CITRATE 296 ML BOTTLE PO ONE (12:30)
--- NOTE | 2020-02-19 13:47 | RADIOLOGY REPORT (SQ) ---
EXAM DESCRIPTION: KUB/ABDOMEN (SINGLE VIEW) IMAGES COMPLETED DATE/TIME: 02/19/2020 12:15 pm REASON FOR STUDY: abd pain COMPARISON: None. NUMBER OF VIEWS: One view. TECHNIQUE: Supine radiographic image of the abdomen acquired. LIMITATIONS: None. FINDINGS: BOWEL GAS PATTERN: Normal bowel gas pattern. No dilated loops. CALCIFICATIONS: No suspicious calcifications. SOFT TISSUES: No gross mass or suggestion of organomegaly. HARDWARE: Tubal ligation clips. BONES: No acute fracture. No worrisome bone lesions. OTHER: No other significant finding. IMPRESSION: NO RADIOGRAPHIC EVIDENCE FOR ACUTE ABDOMINAL DISEASE. TECHNICAL DOCUMENTATION: JOB ID: [id number] [employer]- All Rights Reserved Reading location - IP/workstation name: [email or web address]
[2020-02-19] MEDS: GUAIFENESIN/CODEINE PHOS 100-10 MG/ 5 ML UDC PO PRN (14:06)
[2020-02-20] MEDS: IPRATROPIUM/ALBUTEROL 0.5-2.5 MG/3 ML AMPUL NEB SCH ×2 (00:28→08:10)
[2020-02-20] MEDS: MAGNESIUM HYDROXIDE SUSP 30 ML UDCUP PO PRN (01:20)
[2020-02-20] MEDS: BENZONATATE 100 MG CAPSULE PO PRN ×2 (01:20→09:50)
[2020-02-20] MEDS: PANTOPRAZOLE SODIUM 20 MG TABLET.DR PO SCH (06:49)
[2020-02-20] MEDS: HEPARIN SOD (PORCINE) 5,000 UNIT/ML 1 ML VIAL SUBCUT SCH (06:53)
[2020-02-20 08:20] VITALS: BP 95/65
[2020-02-20] MEDS: FLUTICASONE/VILANTEROL 100-25 MCG/DOSE IH SCH (09:50)
[2020-02-20] MEDS: GUAIFENESIN/CODEINE PHOS 100-10 MG/ 5 ML UDC PO PRN (09:50)
[2020-02-20] MEDS: SENNOSIDES/DOCUSATE 8.6-50 MG 1 EACH TABLET PO SCH (09:50)
[2020-02-20] MEDS ORDERED: PREDNISONE 20 MG TABLET PO SCH (10:00)
--- NOTE | 2020-02-20 13:13 | PDOC DISCHARGE SUMMARY ---
Impression - Admit/DC Date/PCP Admission Date/Primary Care Provider: 02/17/20 14:55 Discharge Date: 02/20/20 - Discharge Diagnosis (1) Exacerbation of asthma Is this a current diagnosis for this admission?: Yes (2) Bronchial asthma Is this a current diagnosis for this admission?: Yes (3) Tobacco use Is this a current diagnosis for this admission?: No (4) Lactic acid acidosis Is this a current diagnosis for this admission?: Yes (5) Hematemesis of unknown cause Is this a current diagnosis for this admission?: Yes - Assessment Summary: (1) Exacerbation of asthma Qualifiers: Asthma severity: moderate Is this a current diagnosis for this admission?: Yes Plan: - - came in with SOB, fever, cough, 4 days duration - known asthmatic on albuterol - no prior intubation for asthma - +ve wheezing, +ve stridor? - COVID negative - CXR no acute process - received solumedrol, Mg, nebs in the ED - continue duoneb round the clock - started on LABA/ICS - solumedrol IV - O2 support as needed Continue with steroids as well as DuoNeb and adjust dose. Patient has minimal wheezing at this time. She probably can be discharged home in a.m. Attempt to discharge her today proved futile 02/19/2020-on examination comfortably in the bed communicating well. Not in shortness of breath. Pulse ox is 100% room air. Chest bilateral entry was good no wheezing no crepitations. Plan is to decrease the dose of prednisone to 20 mg daily. 02/20/2020-patient is comfortably in the bed not in distress. Pulse ox is 99% room air. Chest bilateral it was decreased no wheezing no crepitations present. (2) Bronchial asthma Qualifiers: Asthma severity: mild Asthma persistence: intermittent Asthma complication type: with acute exacerbation Qualified Code(s): J45.21 - Mild intermittent asthma with (acute) exacerbation Is this a current diagnosis for this admission?: Yes Plan: - known asthmatic on PRN albuterol - asthma good control prior to current admission - no prior intubation or ICU admission - continue duoneb - start LABA and ICS on top of rescure - advised smoking cessation 02/20/2020-patient is able to continue his albuterol nebulizations at home and given a prescription for prednisone 20 mg p.o. daily for 1 week. Patient is advised to follow-up with [facility] week. (3) Tobacco use Is this a current diagnosis for this admission?: No Plan: - smokes 5 cig/day for 10 years - known asthmatic - counseling for smoking cessation (4) Lactic acid acidosis Is this a current diagnosis for this admission?: Yes Plan: - Lactic acid 2.1>4.3 - WBC count 8 - CXR normal - no other sign of sepsis, afebrile - lactic acid likely 2/2 to neb treatments - will repeat and monitor - no indication for abx for now -No evidence of sepsis and elevated level likely secondary to asthma exacerbatio n Recheck in a.m. 02/19/2020-latest lactic acid level is 4.8. Started on IV fluids normal saline at 75 cc/h. To repeat the lactic acid level tomorrow. (5) Hematemesis of unknown cause Is this a current diagnosis for this admission?: Yes Plan: - minimal - VS stable, Hgb 11.1 - maybe zahraa hughes - will give protonix - monitor for recurrence Possibly Zahraa-Hughes tear. Vital signs remained stable and hemoglobin relatively stable at 10.7. Follow-up H&H in a.m. 02/19/20-latest hemoglobin is 10.9. Stable. Plan is to closely monitor the labs at this time. 02/20/2020-hemoglobin is stable. No reports of hematemesis in the last 48 hours. - Time Anticipated Discharge Disposition: Home, Self Care Anticipated Discharge Timeframe: within 24 hours - Additional Information Discharge Diet: Regular Discharge Activity: Activity As Tolerated Referrals: [facility] [Provider Group] - 03/05/20 3:30 pm (APPT WITH MINDY FELIX. TELEPHONE APPT) Prescriptions: Prednisone [Deltasone 20 mg Tablet] 20 mg PO DAILY 7 Days #7 tablet Home Medications: Albuterol Sulfate [Proair HFA Inhalation Aerosol 8.5 gm MDI] 2 puff IH Q4H PRN #1 mdi MDD FILLED 02/1402/15/20 Benzonatate [Tessalon Perles 100 mg Capsule] 100 mg PO Q8HP PRN #40 capsule MDD FILLED 02/1402/15/20 Prednisone [Deltasone 20 mg Tablet] 20 mg PO DAILY 7 Days #7 tablet 02/20/20 History of Present Illiness History of Present Illness: LEA EMERSON is a 29 year old female 29 year old female, PMH of Asthma, no prior history of intubation, no recent exacerbation who came in due to SOB and hematemesis. 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 CXR was done which was negative, COVID test negative.She was given cough syrup and was discharged at home. She continued to be have SOB at home with frequent albuterol use which did not provide relief. 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 Denies any abdominal pain, no melena. In the ED, she was given IV steroids, Mg sulfate and nebulizations. LActic acid noted to be 2 .1>4.3. She was then admitted for further evaluation and management. She uses albuterol as a rescue inhaler and her asthma is controlled with no daily or nocturnal symptoms. Hospital Course Hospital Course: 29 year old female, PMH of Asthma, no prior history of intubation, no recent exacerbation who came in due to SOB and hematemesis. 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 CXR was done which was negative, COVID test negative.She was given cough syrup and was discharged at home. She continued to be have SOB at home with frequent albuterol use which did not provide relief. 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 Denies any abdominal pain, no melena. In the ED, she was given IV steroids, Mg sulfate and nebulizations. LActic acid noted to be 2.1>4.3. She was then admitted for further evaluation and management. She uses albuterol as a rescue inhaler and her asthma is controlled with no daily or nocturnal symptoms. 02/[id number]-old female came to the emergency room with complaints of shortness of breath and hematemesis. She also came in with fever. Call with test is negative. Comfortably in the bed communicating well complaining of abdominal pain and complaining of constipation. Blood pressure this morning is 90/43. Lactic acid is elevated at 4.8. Started on IV fluids normal saline at 75 cc/h. 02/20/2020-patient is doing well. Comfortably in the bed communicating well. Pulse ox is 99% room air. Chest bilateral entry was good no wheezing no crepitations. Patient complains of abdominal pain yesterday KUB was negative. Patient is stable to go home today. Physical Exam Vital Signs: Temp Pulse Resp BP Pulse Ox 98.7 F 92 17 95/65 L 100 02/20/20 11:34 02/20/20 11:34 02/20/20 11:34 02/20/20 11:34 02/20/20 11:34 Intake & Output 02/19/20 02/20/20 02/21/20 06:59 06:59 06:59 Intake Total 810 220 Output Total 0 100 Balance 810 120 Weight 71.7 kg 71.2 kg General appearance: PRESENT: no acute distress Head exam: PRESENT: atraumatic Eye exam: PRESENT: PERRLA Mouth exam: PRESENT: moist, tongue midline Neck exam: ABSENT: carotid bruit, JVD, lymphadenopathy, thyromegaly Respiratory exam: PRESENT: clear to auscultation jesus. ABSENT: rales, rhonchi, wheezes Cardiovascular exam: PRESENT: RRR. ABSENT: diastolic murmur, rubs, systolic murmur GI/Abdominal exam: PRESENT: normal bowel sounds, soft. ABSENT: distended, guarding, mass, organolmegaly, rebound, tenderness Rectal exam: PRESENT: deferred Extremities exam: PRESENT: full ROM. ABSENT: calf tenderness, clubbing, pedal edema Neurological exam: PRESENT: alert, awake, oriented to person, oriented to place, oriented to time, oriented to situation, CN II-XII grossly intact. ABSENT: motor sensory deficit Psychiatric exam: PRESENT: appropriate affect, normal mood. ABSENT: homicidal ideation, suicidal ideation Results Laboratory Results: WBC 11.4 10^3/uL (4.0-10.5) H 02/19/20 04:13 RBC 3.97 10^6/uL (3.72-5.28) 02/19/20 04:13 Hgb 10.9 g/dL (12.0-15.5) L 02/19/20 04:13 Hct 33.3 % (36.0-47.0) L 02/19/20 04:13 MCV 84 fl (80-97) 02/19/20 04:13 MCH 27.4 pg (27.0-33.4) 02/19/20 04:13 MCHC 32.7 g/dL (32.0-36.0) 02/19/20 04:13 RDW 16.2 % (11.5-14.0) H 02/19/20 04:13 Plt Count 270 10^3/uL (150-450) 02/19/20 04:13 Lymph % (Auto) 26.9 % (13-45) 02/19/20 04:13 Perkins % (Auto) 6.6 % (3-13) 02/19/20 04:13 Eos % (Auto) 0.6 % (0-6) 02/19/20 04:13 Baso % (Auto) 0.3 % (0-2) 02/19/20 04:13 Absolute Neuts (auto) 7.5 10^3/uL (1.7-8.2) 02/19/20 04:13 Absolute Lymphs (auto) 3.1 10^3/uL (0.5-4.7) 02/19/20 04:13 Absolute Monos (auto) 0.8 10^3/uL (0.1-1.4) 02/19/20 04:13 Absolute Eos (auto) 0.1 10^3/uL (0.0-0.6) 02/19/20 04:13 Absolute Basos (auto) 0.0 10^3/uL (0.0-0.2) 02/19/20 04:13 Seg Neutrophils % 65.6 % (42-78) 02/19/20 04:13 PT 13.4 SEC (11.4-15.4) 02/16/20 12:24 INR 1.00 02/16/20 12:24 Carbonic Acid 1.20 mmol/L (1.05-1.35) 02/16/20 13:16 HCO3/H2CO3 Ratio 20:1 02/16/20 13:16 ABG pH 7.41 (7.35-7.45) 02/16/20 13:16 ABG pCO2 40.0 mmHg (35-45) 02/16/20 13:16 ABG pO2 171.4 mmHg (80-100) H 02/16/20 13:16 ABG HCO3 24.7 mmol/L (20-24) H 02/16/20 13:16 ABG Total CO2 25.9 mmol/L (21-25) H 02/16/20 13:16 ABG O2 Saturation 99.2 % (94-98) H 02/16/20 13:16 ABG Base Excess 0.1 mmol/L 02/16/20 13:16 FiO2 4L 02/16/20 13:16 Sodium 138.4 mmol/L (137-145) 02/17/20 05:05 Potassium 4.5 mmol/L (3.6-5.0) 02/17/20 05:05 Chloride 107 mmol/L (98-107) 02/17/20 05:05 Carbon Dioxide 23 mmol/L (22-30) 02/17/20 05:05 Anion Gap 8 (5-19) 02/17/20 05:05 BUN 10 mg/dL (7-20) 02/17/20 05:05 Creatinine 0.67 mg/dL (0.52-1.25) 02/17/20 05:05 Est GFR ( Amer) > 60 (>60) 02/17/20 05:05 Est GFR (MDRD) Non-Af > 60 (>60) 02/17/20 05:05 Glucose 125 mg/dL (75-110) H 02/17/20 05:05 Lactic Acid 4.8 mmol/L (0.7-2.1) H 02/16/20 20:42 Calcium 8.9 mg/dL (8.4-10.2) 02/17/20 05:05 Total Bilirubin 0.4 mg/dL (0.2-1.3) 02/16/20 12:24 Direct Bilirubin 0.2 mg/dL (0.0-0.4) 02/16/20 12:24 Neonat Total Bilirubin Not Reportable 02/16/20 12:24 Neonat Direct Bilirubin Not Reportable 02/16/20 12:24 Neonat Indirect Bili Not Reportable 02/16/20 12:24 AST 21 U/L (14-36) 02/16/20 12:24 ALT 18 U/L (<35) 02/16/20 12:24 Alkaline Phosphatase 51 U/L (38-126) 02/16/20 12:24 Troponin I < 0.012 ng/mL 02/16/20 12:24 Total Protein 6.7 g/dL (6.3-8.2) 02/16/20 12:24 Albumin 4.0 g/dL (3.5-5.0) 02/16/20 12:24 Urine Color YELLOW 02/16/20 15:48 Urine Appearance CLOUDY 02/16/20 15:48 Urine pH 6.0 (5.0-9.0) 02/16/20 15:48 Ur Specific Hughson 1.025 02/16/20 15:48 Urine Protein NEGATIVE mg/dL (NEGATIVE) 02/16/20 15:48 Urine Glucose (UA) NEGATIVE mg/dL (NEGATIVE) 02/16/20 15:48 Urine Ketones NEGATIVE mg/dL (NEGATIVE) 02/16/20 15:48 Urine Blood NEGATIVE (NEGATIVE) 02/16/20 15:48 Urine Nitrite (Reflex) NEGATIVE (NEGATIVE) 02/16/20 15:48 Urine Bilirubin NEGATIVE (NEGATIVE) 02/16/20 15:48 Urine Urobilinogen NEGATIVE mg/dL (<2.0) 02/16/20 15:48 Leukocyte Esterase Rfl SMALL (NEGATIVE) H 02/16/20 15:48 Urine RBC (Auto) 2 /HPF 02/16/20 15:48 Urine Bacteria (Auto) TRACE /HPF 02/16/20 15:48 Urine WBC (Reflex) 2 /HPF 02/16/20 15:48 Squamous Epi Cells Auto 12 /HPF 02/16/20 15:48 Amorphous Sediment Auto TRACE /HPF 02/16/20 15:48 Urine Mucus (Auto) OCC /LPF 02/16/20 15:48 Urine Ascorbic Acid NEGATIVE (NEGATIVE) 02/16/20 15:48 02/16/20 12:24 Troponin I < 0.012 Impressions: Chest X-Ray 02/16/20 12:28 IMPRESSION: NO ACUTE RADIOGRAPHIC FINDING IN THE CHEST. KUB X-Ray 02/19/20 00:00 IMPRESSION: NO RADIOGRAPHIC EVIDENCE FOR ACUTE ABDOMINAL DISEASE. Plan Time Spent: Greater than 30 Minutes Stroke Is this a Stroke Patient?: No Acute Heart Failure Is this a Heart Failure Patient?: No
== END 2020-02-20 13:00 | disposition home or self-care (01) | DRG 202 ==
LOC: ER 12:18 → EH 21:33 → 4S 02-17 00:01 → OBSVTOIN 02-17 14:55
PROVIDERS: ADMIT Internal Medicine; ATTEND Internal Medicine
DX: J45.41 Moderate persistent asthma with (acute) exacerbation (principal); E87.2 Acidosis; K92.0 Hematemesis; F17.210 Nicotine dependence, cigarettes, uncomplicated; F31.9 Bipolar disorder, unspecified; Z79.899 Other long term (current) drug therapy; Z79.891 Long term (current) use of opiate analgesic; Z88.8 Allergy status to other drugs, medicaments and biological substances; Z88.6 Allergy status to analgesic agent; Z91.040 Latex allergy status
CPT/HCPCS: 36415; 71045; 74018; 80048; 80053; 81001; 82803; 83605; 84484; 85025; 85027; 85610; 87040; 93005; 93010; 94640; C9113; G0378; J1100; J1644; J2405; J2920; J3475; J3490; J7030; J7120; J7512; J7613

== ENCOUNTER 2020-03-05 14:15 | Emergency (ER) | payer SELFPAY ==
[2020-03-05 14:57] LABS: ABSOLUTE EOSINOPHILS # (AUTO) 0.2 10^3/uL (0.0-0.6); ABSOLUTE LYMPHOCYTES (AUTO) 1.7 10^3/uL (0.5-4.7); ABSOLUTE MONOCYTES (AUTO) 0.3 10^3/uL (0.1-1.4); ABSOLUTE NEUT (AUTO) 1.5 10^3/uL (1.7-8.2); BASOPHILS % (AUTO) 0.8 % (0-2); EOSINOPHILS % (AUTO) 4.7 % (0-6); HEMOGLOBIN 11.2 g/dL (12.0-15.5); LYMPHOCYTES % (AUTO) 45.2 % (13-45); MEAN CORPUSCULAR HEMOGLOBIN 28.8 pg (27.0-33.4); MEAN CORPUSCULAR HGB CONC 33.8 g/dL (32.0-36.0); MEAN CORPUSCULAR VOLUME 85 fl (80-97); MONOCYTES % (AUTO) 9.2 % (3-13); PLATELET COUNT 236 10^3/uL (150-450); RED BLOOD COUNT 3.87 10^6/uL (3.72-5.28); RED CELL DISTRIBUTION WIDTH 16.3 % (11.5-14.0); SEGMENTED NEUTROPHILS % (AUTO) 40.1 % (42-78); TOTAL CELLS COUNTED % (AUTO) 100 %; WHITE BLOOD COUNT 3.7 10^3/uL (4.0-10.5)
--- NOTE | 2020-03-05 15:14 | RADIOLOGY REPORT (SQ) ---
EXAM DESCRIPTION: CHEST SINGLE VIEW IMAGES COMPLETED DATE/TIME: 03/05/2020 2:56 pm REASON FOR STUDY: shortness of breath COMPARISON: AP view of the chest from 02/16/2020. EXAM PARAMETERS: NUMBER OF VIEWS: One view. TECHNIQUE: An AP view of the chest was obtained. RADIATION DOSE: NA LIMITATIONS: None. FINDINGS: LUNGS AND PLEURA: No consolidation, pleural effusion or pneumothorax. MEDIASTINUM AND HILAR STRUCTURES: No mediastinal or hilar contour abnormality. HEART AND VASCULAR STRUCTURES: The cardiac silhouette and pulmonary vasculature are within normal sanchez its. BONES: No acute findings. HARDWARE: None in the chest. OTHER: No other finding. IMPRESSION: No acute cardiopulmonary process. TECHNICAL DOCUMENTATION: JOB ID: [id number] 2010 [employer]- All Rights Reserved Reading location - IP/workstation name: [email or web address]
[2020-03-05 15:18] LABS: ALBUMIN 3.4 g/dL (3.5-5.0); ALKALINE PHOSPHATASE 51 U/L (38-126); ANION GAP 7 (5-19); ASPARTATE AMINO TRANSFERASE 19 U/L (14-36); BILIRUBIN,DIRECT 0.2 mg/dL (0.0-0.4); BILIRUBIN,TOTAL 0.5 mg/dL (0.2-1.3); BLOOD UREA NITROGEN 11 mg/dL (7-20); CALCIUM 8.8 mg/dL (8.4-10.2); CARBON DIOXIDE 27 mmol/L (22-30); CHLORIDE 104 mmol/L (98-107); GLUCOSE 104 mg/dL (75-110); TOTAL PROTEIN 5.8 g/dL (6.3-8.2)
--- NOTE | 2020-03-05 16:10 | ER Document Report ---
ED General - General Chief Complaint: Breathing Difficulty Stated Complaint: DIFFICULTY BREATHING Time Seen by Provider: 03/05/20 15:35 Information source: Patient TRAVEL OUTSIDE OF THE [place] IN LAST 30 DAYS: No - HPI Notes: Patient presents complaining of shortness of breath. Is been going on for about 2 to 3 days. She states that she was recently seen here for similar complaints and was given steroids, and inhaler, and Tessalon Perles. She states that these medicines are not helping and that she still has a cough and shortness of breath. She states she feels she would do better if she had a nebulizer machine. 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 Patient symptoms were apparently mild to moderate. They are apparently constant. Apparently made worse by exertion and better with rest. She states she does have a history of asthma. - Related Data Allergies/Adverse Reactions: hydromorphone [From Dilaudid] Allergy (Verified 02/16/20 13:26) latex Allergy (Verified 02/16/20 13:26) swelling, itching Past Medical History - General Information source: Patient - Social History Smoking Status: Current Every Day Smoker Frequency of alcohol use: None Drug Abuse: None Family History: Reviewed & Not Pertinent - Past Medical History Cardiac Medical History: Reports: Hx Hypertension - not currently Denies: Hx Pulmonary Embolism, Hx Heart Murmur Pulmonary Medical History: Reports: Hx Asthma Denies: Hx Sleep Apnea, Hx Tuberculosis Neurological Medical History: Denies: Hx Cerebrovascular Accident Endocrine Medical History: Denies: Hx Diabetes Mellitus Type 1, Hx Diabetes Mellitus Type 2, Hx Hyperthyroidism, Hx Hypothyroidism Renal/ Medical History: Denies: Hx Kidney Stones, Hx Ovarian Cysts, Hx P eritoneal Dialysis, Hx Pelvic Inflammatory Disease Malignancy Medical History: Denies: Hx Breast Cancer, Hx Cervical Cancer, Hx Ovarian Cancer GI Medical History: Denies: Hx Gastroesophageal Reflux Disease, Hx Hiatal Hernia, Hx Ulcer Musculoskeletal Medical History: Denies Hx Fibromyalgia Psychiatric Medical History: Reports: Hx Bipolar Disorder, Hx Depression Denies: Hx Post Traumatic Stress Disorder, Hx Schizophrenia Traumatic Medical History: Denies: Hx Fractures Infectious Medical History: Denies: Hx HIV Past Surgical History: Reports: Hx Section - x4, Hx Kidney (Renal Surgery), Hx Tubal Ligation - Immunizations Immunizations up to date: Yes Hx Diphtheria, Pertussis, Tetanus Vaccination: Yes Hx Pneumococcal Vaccination: 03/08/13 Review of Systems - Review of Systems Constitutional: denies: Chills, Fever Respiratory: Cough, Short of breath Gastrointestinal: denies: Diarrhea, Vomiting -: Yes All other systems reviewed and negative Physical Exam - Vital signs Vitals: Pulse Ox 100 03/05/20 15:10 Interpretation: Normal - General General appearance: Appears well, Alert - HEENT Head: Normocephalic, Atraumatic Eyes: Normal Pupils: PERRL - Respiratory Respiratory status: No respiratory distress Chest status: Nontender Breath sounds: Normal Chest palpation: Normal - Cardiovascular Rhythm: Regular Heart sounds: Normal auscultation Murmur: No - Abdominal Inspection: Normal Distension: No distension Bowel sounds: Normal Tenderness: Nontender Organomegaly: No organomegaly - Back Back: Normal, Nontender - Extremities General upper extremity: Normal inspection, Nontender, Normal color, Normal ROM, Normal temperature General lower extremity: Normal inspection, Nontender, Normal color, Normal ROM, Normal temperature, Normal weight bearing. No: Kimberly's sign - Neurological Neuro grossly intact: Yes Cognition: Normal Orientation: AAOx4 [place] Coma Scale Eye Opening: Spontaneous [place] Coma Scale Verbal: Oriented [place] Coma Scale Motor: Obeys Commands Price Coma Scale Total: 15 Speech: Normal Motor strength normal: LUE, RUE, LLE, RLE Sensory: Normal - Psychological Associated symptoms: Normal affect, Normal mood - Skin Skin Temperature: Warm Skin Moisture: Dry Skin Color: Normal Course - Re-evaluation Re-evalutation: 03/05/20 16:05 Patient was seen by me just as a stroke patient arrived. I had to leave the room to take care of the acute stroke presentation. However patient stated that she was unable to wait and needed to leave AGAINST MEDICAL ADVICE. She states that she would like a nebulizer machine. I instructed patient that I had to go take care of the stroke patient but that I would see if social work could help arrange for her to have a nebulizer machine which we are currently in the process of doing. Patient was also instructed that she should return to the emergency department when she has finished picking up her children. - Vital Signs Vital signs: Temp Pulse Resp BP Pulse Ox 100 03/05/20 15:10 - Laboratory Result Diagrams: 03/05/20 14:36 03/05/20 14:36 Laboratory results interpreted by me: 03/05/20 03/05/20 14:36 14:36 WBC 3.7 L Hgb 11.2 L Hct 33.0 L RDW 16.3 H Lymph % (Auto) 45.2 H Absolute Neuts (auto) 1.5 L Seg Neutrophils % 40.1 L Total Protein 5.8 L Albumin 3.4 L - Diagnostic Test Radiology reviewed: Image reviewed, Reports reviewed Discharge - Discharge Clinical Impression: Shortness of breath, Left against medical advice, Smoker Disposition: AGAINST MEDICAL ADVICE Instructions: Dyspnea, Nonspecific ([facility]) Prescriptions: Albuterol Sulfate [Ventolin 0.083% Neb 2.5 mg/3 mL Ampul] 1 vial NEB Q4 PRN 10 Days #30 vial PRN Reason: Shortness Of Breath Forms: Return to Work
[2020-03-05 16:25] VITALS: BP 107/57
--- NOTE | 2020-03-05 17:52 | EKG REPORT ---
SEVERITY:- NORMAL ECG - SINUS RHYTHM : Confirmed by: Jose Turner MD 05-Mar-2020 17:51:46
== END 2020-03-05 15:50 | disposition left against medical advice (07) ==
LOC: ER 14:15
DX: J45.909 Unspecified asthma, uncomplicated (principal); R06.02 Shortness of breath; R05 Cough; F17.200 Nicotine dependence, unspecified, uncomplicated; Z88.6 Allergy status to analgesic agent; Z88.5 Allergy status to narcotic agent; Z91.040 Latex allergy status; Z53.29 Procedure and treatment not carried out because of patient's decision for other reasons
CPT/HCPCS: 36415; 71045; 80053; 85025; 93005; 93010; 99285